=== PATIENT | male | born 1950 | race Caucasian/White ===

== ENCOUNTER 2017-02-17 07:35 | Emergency (ER) | payer MEDICARE ==
--- NOTE | 2017-02-17 09:05 | RAD ---
4 VIEWS LEFT ELBOW: Date: 02/17/17 COMPARISON: None. HISTORY: Left elbow pain after injury. FINDINGS: Four views of the left elbow show no evidence of acute fracture or dislocation. No degenerative saha ges are seen. No elbow effusion is seen. IMPRESSION: No significant left elbow abnormality. POS: [facility]
--- NOTE | 2017-02-17 09:14 | RAD ---
3 VIEWS LUMBAR SPINE: Date: 02/17/17 COMPARISON: 11/02/12. HISTORY: Fall, trauma, pain. FINDINGS: There is atherosclerotic calcification of the abdominal aorta. Stent graft material overlies the rig ht sacral ala. There is an anterior wedge compression fracture of the T12 vertebral body with approximately 40% los s of vertebral body height anteriorly, unchanged when compared to the 11/02/12 exam. There is a mild superior end plate fracture of L1. This L1 anterior wedge compression fracture/super ior end plate fracture demonstrates 25% loss of vertebral body height. This fracture is new when com pared to prior imaging, which includes a CT exam performed on 09/28/16. No evidence for fracture of L2, L3, L4, or L5. IMPRESSION: 1. New superior end plate/anterior wedge compression fracture of L1 vertebral body with approximate ly 25% loss of vertebral body height anteriorly. 2. Stable T12 anterior wedge compression fracture. POS: [facility]
== END 2017-02-17 10:41 | disposition home or self-care (01) ==
LOC: ERS 07:35
DX: S32.019A Unspecified fracture of first lumbar vertebra, initial encounter for closed fracture (principal); I12.9 Hypertensive chronic kidney disease with stage 1 through stage 4 chronic kidney disease, or unspecified chronic kidney disease; N18.2 Chronic kidney disease, stage 2 (mild); E78.5 Hyperlipidemia, unspecified; I25.10 Atherosclerotic heart disease of native coronary artery without angina pectoris; F17.210 Nicotine dependence, cigarettes, uncomplicated; Z79.899 Other long term (current) drug therapy; Z86.73 Personal history of transient ischemic attack (TIA), and cerebral infarction without residual deficits; W06.XXXA Fall from bed, initial encounter
CPT/HCPCS: 72100

== ENCOUNTER 2017-06-24 20:06 | Inpatient (IN) | payer MEDICARE ==
--- NOTE | 2017-06-24 21:19 | RAD ---
LEFT FEMUR TWO VIEWS 06/24/17 INDICATION: Fall with pain. FINDINGS: There is mild cortical irregularity of the lateral aspect of the subcapital aspect of the proximal le ft femur. There is osteoarthritis. IMPRESSION: Subtle fracture lucency suggested at the subcapital aspect of the proximal left femur. Consider dedic ated hip views for further evaluation. POS: [facility]
[2017-06-24 21:22] LABS: #Eosinphils 0.1 thou/uL (0.0-0.7); #Lymphocytes 1.3 thou/uL (1.20-3.40); #Monocytes 0.5 thou/uL (0.11-0.59); %Basophils 0.4 % (0.0-1.0); %Eosinophils 1.6 % (0.0-10.0); %Lymphocytes 18.5 % (21.0-51.0); %Monocytes 7.3 % (0.0-10.0); %Neutrophils 72.3 % (42.0-75.0); Hemoglobin 13.2 g/dL (14.0-18.0); Mean Corpuscular HGB CONC 32.9 g/dL (32.0-36.0); Mean Corpuscular Hemoglobin 29.9 pg (27.0-31.0); Mean Corpuscular Volume 90.9 fl (80.0-94.0); Mean Platelet Volume 7.1 fL (7.4-10.4); Platelet Count 166 thou/uL (130-400); RBC Distribution Width 12.4 % (11.5-14.5); White Blood Cell (WBC) Count 6.9 thou/uL (4.8-10.8)
--- NOTE | 2017-06-24 21:24 | RAD ---
FRONTAL VIEW CHEST 06/24/17 INDICATION: Fall with pain. FINDINGS: Interstitial prominence of each lung present. There is no obvious consolidation, discrete pneumothora x or significant effusion. Patient positioning does limit assessment. The cardiac silhouette is accentuated. There is osseous de generative change. IMPRESSION: Interstitial prominence of each lung. This could be on the basis of edema or interstitial lung diseas e. No lobar consolidation. POS: [facility]
[2017-06-24 21:28] LABS: INR-International Normal Ratio 1.1; PTT 38.1 SEC (22.9-36.1); Prothrombin Time 13.8 SEC (12.0-14.7)
--- NOTE | 2017-06-24 21:28 | RAD ---
PELVIC RADIOGRAPH 06/24/17 INDICATION: Fall with pain. FINDINGS: There is mild cortical irregularity of the lateral aspect of the subcapital region of the proximal le ft femur. There is scattered osseous degenerative change. Vascular stents seen at the right iliac reg ion and there is scattered metallic clips. IMPRESSION: Cortical irregularity of the lateral aspect of the subcapital region of the proximal left femur indic ating minimally displaced acute fracture. Recommend clinical correlation. POS: [facility]
[2017-06-24 21:47] LABS: ALT (SGPT) 8 U/L (8-55); AST (SGOT) 10 U/L (5-34); Alkaline Phosphatase 114 U/L (40-150); Anion Gap 12 mmol/L (10-20); BUN (Urea Nitrogen) 14 mg/dL (8.4-25.7); Bilirubin, Total 0.7 mg/dL (0.2-1.2); Calc. Creatinine Clearance 0 mL/min (70-130); Calcium 9.4 mg/dL (7.8-10.44); Carbon Dioxide 26 mmol/L (23-31); Chloride 107 mmol/L (98-107); Estimated GFR-MDRD 77; Globulin 3.3 g/dL (2.4-3.5); Glucose 121 mg/dL (80-115); Potassium 4.2 mmol/L (3.5-5.1); Protein, Total 7.3 g/dL (5.8-8.1); Sodium 141 mmol/L (136-145)
--- NOTE | 2017-06-24 22:44 | CT ---
CT HEAD 06/24/17 INDICATION: Fall with head injury. FINDINGS: reference is made to 11/20/16. Redemonstration of multifocal ischemia with deep white matter disease and multifocal encephalomalaci a. Stable density of the left occipital region. IMPRESSION: No significant interval change from 11/20/16 exam. POS: [facility]
--- NOTE | 2017-06-24 22:51 | CT ---
CERVICAL SPINE CT NONCONTRAST 06/24/17 INDICATION: Fall with neck injury and pain. FINDINGS: There is no evidence of craniocervical distraction. Multilevel moderate degenerative changes present. There is no acute fracture. There is mild retrolisthesis of C3 on C4 and C4 on C5. Trace spondylolis thesis is present at C7-T1. IMPRESSION: No acute fracture identified of cervical spine. There is moderate multilevel degenerative change. POS: [facility]
[2017-06-24] MEDS ORDERED: traMADol HCl 50 MG TAB PO PRN (23:09)
[2017-06-24] MEDS ORDERED: Dextrose 5% in Water 1,000 ML IV PRN (23:10)
[2017-06-24] MEDS ORDERED: Ondansetron HCl/PF 4 MG/2 ML Vial IVP PRN (23:10)
[2017-06-24] MEDS ORDERED: Ondansetron ODT 4 MG TAB PO PRN (23:10)
[2017-06-24] MEDS ORDERED: Dextrose 50% Abboject 50 ML SYRINGE SLOW IVP PRN (23:10)
[2017-06-24 23:31] LABS: CKMB 0.9 ng/mL (0-6.6); Troponin I Less than 0.010 ng/mL (< 0.028)
[2017-06-24] MEDS ORDERED: Sodium Chloride 0.9% 1,000 ML IV SCH (23:45)
[2017-06-24] MEDS ORDERED: Acetaminophen 1,000 MG in Premix Bag 1 BAG IVPB SCH (23:59)
[2017-06-24] MEDS ORDERED: Ketorolac Tromethamine 30 MG/ML VIAL IVP SCH (23:59)
[2017-06-24] MEDS ORDERED: traMADol HCl 50 MG TAB PO SCH (23:59)
[2017-06-25] MEDS ORDERED: Dextrose 5% in Water 1,000 ML IV PRN (02:00)
[2017-06-25] MEDS ORDERED: Dextrose 50% Abboject 50 ML SYRINGE SLOW IVP PRN (02:00)
[2017-06-25] MEDS ORDERED: Ondansetron ODT 4 MG TAB PO PRN (02:03)
[2017-06-25] MEDS ORDERED: Ondansetron HCl/PF 4 MG/2 ML Vial IVP PRN ×3 (02:03→15:22)
[2017-06-25] MEDS ORDERED: traMADol HCl 50 MG TAB PO PRN (02:04)
[2017-06-25] MEDS: Sodium Chloride 0.9% 1,000 ML IV SCH ×2 (02:12→14:04)
[2017-06-25] MEDS: Acetaminophen 1,000 MG in Premix Bag 1 BAG IVPB SCH ×4 (02:12→22:19)
[2017-06-25] MEDS ORDERED: Ketorolac Tromethamine 30 MG/ML VIAL ONE (02:13)
--- NOTE | 2017-06-25 02:49 | HP ---
DATE OF SERVICE: 06/25/2017 ATTENDING PHYSICIAN: Fabrice Piper M.D. TRAUMA ACTIVATION: Not applicable. HISTORY OF PRESENT ILLNESS: This is a 67-year-old gentleman who presented to the [facility] from his [facility] after a fall earlier today. Per correction, patient's baseline orient ation is alert and oriented x2. The patient does recall falling in the shower, but does not remember the events surrounding his accident. He denies loss of consciousness or head injury. There are no external signs of head trauma. He was evaluated in the emergency room and found to have a left femur fracture. Orthopedic Surgery was notified and Trauma Services was asked to admit. Upon my evaluati on, the patient had a chief complaint of left hip pain. The majority of the history was obtained fro m records review as patient has a history of vascular dementia. PAST MEDICAL HISTORY: Significant for peripheral vascular disease, multiple CVAs, coronary artery di sease, and hypertension as well as a GI bleed. HOME MEDICATIONS: Per correction documentation include amlodipine 5 mg p.o. b.i.d., Lipitor 10 mg p.o. b.i.d., Protonix 40 mg p.o. daily, B12 of 1000 mcg p.o. daily, Florastor 250 mg p.o. daily, foli c acid 1 mg p.o. daily, multivitamin daily, thiamine 100 mg p.o. daily, iron supplementation 325 p.o. daily, buspirone 5 mg t.i.d., Risperdal 0.25 mg p.o. at bedtime. 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 ALLERGIES: Patient denies. None documented in our system. SOCIAL HISTORY: Patient is a correction resident and states he ambulates independently. He does a dmit to previous tobacco use, but denies current tobacco, alcohol or illicit drug use. FAMILY HISTORY: Unable to obtain. Per record review, he does have 2 daughters, one of which is the power of campground hand. REVIEW OF SYSTEMS: Unobtainable secondary to patient's underlying dementia. PHYSICAL EXAMINATION: VITAL SIGNS: Blood pressure 119/74, pulse 93, respirations 20, O2 saturation 97% on 3 liters nasal c annula, temperature 99.1. HEENT: Normocephalic, atraumatic. Eyes: Left eye is 1 mm and reactive to light, right eye is 4 mm and sluggish, but reactive. The patient states this is normal for him and occurred status post catar act surgery. Extraocular movements are intact. NECK: Supple. Trachea is midline. CHEST: Atraumatic. No tenderness to palpation. LUNGS: Clear to auscultation bilaterally. CARDIOVASCULAR: Regular rate and rhythm, no obvious murmurs, rubs, or gallops. GASTROINTESTINAL: Abdomen is soft, nontender, nondistended. Bowel sounds are positive. MUSCULOSKELETAL: Bilateral upper extremities range of motion within normal limits for patient. Ther e are 2 small skin tears on the left side, 1 posterior to the left elbow and 1 at the left wrist. Ri ght lower extremity within normal limits. There is bruising of the left buttocks with limited range of motion of left lower extremity secondary to pain. He is neurovascularly intact distal to the side of his injury. NEUROLOGIC: Oriented to self and situation. LABORATORY FINDINGS: EKG reviewed by ER physician within normal limits. WBC 6.9, hemoglobin 13.2, hematocrit 40, platelet count 166. INR is 1.1, PT 13.8, PTT 38.1. Sodium 141, potassium 4.2, chloride 107, carbon dioxide 26, BUN 14, creatinine 0.97, glucose 121. Troponin less than 0.010. BNP 23. Urinalysis is pending. RADIOLOGIC FINDINGS: Chest x-ray read by Radiology as an interstitial prominence of each lung but wi thout acute cardiopulmonary process. X-ray of the pelvis was read as having irregularity of the subc apital region of the proximal left femur. X-ray of the left femur demonstrated a subcapital fracture per Radiology read. CT of the brain was negative for acute intracranial abnormality or bleed and st able compared with prior in 2017. CT of the C-spine is negative for acute fracture or dislocation, b ut did demonstrate chronic degenerative changes. ASSESSMENT: 1. Status post unwitnessed fall. 2. Left hip fracture. 3. Acute traumatic pain. 4. History of peripheral vascular disease. 5. History of coronary artery disease. 6. History of multiple cerebrovascular accidents. 7. Vascular dementia. 8. Arthritis. PLAN: 1. Admit to Trauma Services. 2. Orthopedic surgery has been notified and will evaluate the patient. The patient should be n.p.o. after midnight. Gentle IV fluid hydration. Perioperative pain management. Postoperative PT, OT. 3. DVT and gastritis prophylaxis as appropriate. Trauma service has been notified of admission.
[2017-06-25 05:07] VITALS: BMI 16.2
[2017-06-25] MEDS: Ketorolac Tromethamine 30 MG/ML VIAL IVP SCH ×4 (05:11→22:21)
[2017-06-25] MEDS: traMADol HCl 50 MG TAB PO SCH ×3 (05:42→17:29)
[2017-06-25 05:58] LABS: #Eosinphils 0.1 thou/uL (0.0-0.7); #Lymphocytes 1.1 thou/uL (1.20-3.40); #Monocytes 0.5 thou/uL (0.11-0.59); #Neutrophils 4.5 thou/uL (1.40-6.50); %Basophils 0.4 % (0.0-1.0); %Eosinophils 2.2 % (0.0-10.0); %Monocytes 8.4 % (0.0-10.0); Hemoglobin 11.7 g/dL (14.0-18.0); Mean Corpuscular HGB CONC 32.4 g/dL (32.0-36.0); Mean Corpuscular Hemoglobin 29.6 pg (27.0-31.0); Mean Corpuscular Volume 91.4 fl (80.0-94.0); Mean Platelet Volume 7.3 fL (7.4-10.4); Platelet Count 156 thou/uL (130-400); RBC Distribution Width 12.2 % (11.5-14.5); Red Blood Cell (RBC) Count 3.94 mill/uL (4.70-6.10); White Blood Cell (WBC) Count 6.3 thou/uL (4.8-10.8)
[2017-06-25] MEDS ORDERED: Ketorolac Tromethamine 30 MG/ML VIAL IVP SCH (06:00)
[2017-06-25] MEDS ORDERED: Fentanyl 100 MCG/2 ML VIAL ONE (07:43)
[2017-06-25] MEDS ORDERED: Prevnar 13-Val Conj/PF 0.5 ML SYRINGE IM ONE (08:15)
[2017-06-25] MEDS: Famotidine/PF 20 mg/2ml Vial SLOW IVP SCH ×2 (08:46→22:21)
[2017-06-25] MEDS ORDERED: Famotidine/PF 20 mg/2ml Vial SLOW IVP SCH (09:00)
--- NOTE | 2017-06-25 09:30 | RAD ---
TWO VIEWS OF THE LEFT HIP: INDICATION: History of femur fracture and left hip pain. IMPRESSION: There is a mildly displaced comminuted left femoral neck fracture. There is diffuse osteopenia. The subcapital femoral neck fracture does not appear appreciably changed from the comparison dated . POS: [facility]
--- NOTE | 2017-06-25 09:53 | CT ---
CT OF THE LEFT HIP WITHOUT CONTRAST: INDICATION: History of left-sided hip fracture. COMPARISON: Left femoral radiographs dated 06/24/07 and left hip radiographs dated 06/25/17. FINDINGS: There is a comminuted subcapital femoral neck fracture with fracture communication extending into the basicervical region of the femoral neck. The subcapital femoral neck component is posteriorly and l aterally angulated. More prominent vertically oriented fracture component extends from the subcapita l region into the inferior and anterior aspect of the basicervical neck region. Additional comminuti on is seen along the posterior and superior margin of the base of the femoral neck. There is diffuse osteopenia. There is moderate osteoarthrosis of the left hip joint. There is mild muscular strain involving the left iliopsoas musculature. There is moderate distention of the bladder. The rectum a nd perirectal soft tissues are unremarkable. There are scattered vascular calcifications. IMPRESSION: Comminuted, mildly angulated left subcapital femoral neck fracture with fracture comminution extendin g into the left femoral neck midcervical region as well as the basicervical region indicative of an u nstable femoral neck fracture. POS: [facility]
--- NOTE | 2017-06-25 09:59 | PDOC.GSPN ---
Surgery Progress Note: Subj - Subjective Narrative: Resting comfortably. No complaints Surgery Progress Note: Obj - Vital signs Vital signs: Vital Signs - Most Recent Temp Pulse Resp BP Pulse Ox 97.5 F L 68 16 95/61 94 L 06/25/17 08:15 06/25/17 08:15 06/25/17 08:15 06/25/17 08:15 06/25/17 08:15 - Physical Exam General: no distress Cardiovascular: regular rate and rhythm Respiratory: clear to auscultation Abdomen: soft, non tender Surgery Progress Note: Results - Labs Result Diagrams: 06/25/17 04:54 06/24/17 21:10 Lab results: Laboratory Results - last 24 hr 06/25/17 06/25/17 04:54 04:54 WBC 6.3 RBC 3.94 L Hgb 11.7 L Hct 36.0 L MCV 91.4 MCH 29.6 MCHC 32.4 RDW 12.2 Plt Count 156 MPV 7.3 L Neutrophils % 72.0 Lymphocytes % 17.0 L Monocytes % 8.4 Eosinophils % 2.2 Basophils % 0.4 Neutrophils # 4.5 Lymphocytes # 1.1 L Monocytes # 0.5 Eosinophils # 0.1 Basophils # 0.0 Phosphorus 3.6 Surgery Progress Note: A/P - Problem (1) Closed right hip fracture Current Visit: Yes Code(s): S72.001A - FRACTURE OF UNSP PART OF NECK OF RIGHT FEMUR, INIT Status: Acute Assessment and Plan: To OR once consent obtained. See H&P from Danna ANDERSON for details
--- NOTE | 2017-06-25 10:51 | HP ---
DATE OF PROCEDURE: 06/25/2017 CHIEF COMPLAINT: Left hip pain. HISTORY OF PRESENT ILLNESS: Mr. Rousseau is a 67-year-old male status post a fall at the senior living followed by Dr. Dumont in [place]. Date of the fall was 06/24/2017. The patient is currently compl aining of pain in his left hip. The patient has a history of vascular dementia. The patient has a Keenan brennan who is his power of bankruptcy attorney. The patient also has a brother. He was unable obtain history. The patient is complaining of left hip pain. Most of the history was obtained from senior living records and previous chart evaluation. PAST MEDICAL HISTORY: Anemia, hyperlipidemia, hypertension, vascular dementia, left spastic hemipleg ia, coronary artery disease, stroke, OR, gastroesophageal reflux, chronic kidney disease, peripheral vascular disease. PAST SURGICAL HISTORY: Right toe amputation 3-5 and a right anterior tib bi-fem/pop with stenting. MEDICATIONS: Thiamine, ferrous sulfate, Norvasc, buspirone, vitamin B12, Florastor, folic acid, mul tivitamin, pantoprazole, atorvastatin, risperidone. ALLERGIES: No known drug allergies. SOCIAL HISTORY: Positive smoking in the past per chart. Currently no tobacco, alcohol, or drug use. Lives in a senior living [facility]. Daughter is the power of bankruptcy attorney. He has got a florencia loya and apparently another daughter. REVIEW OF SYSTEMS: Unobtainable. PHYSICAL EXAMINATION: GENERAL: A male resting in bed in no acute distress, alert, and oriented to person, not to time or place. EXTREMITIES: Left lower extremity looks in good alignment. He has pain with internal and external r otation, no obvious bruising. The patient has a stable pelvis on AP and lateral exam. The patient h as weak knee extension and knee flexion. He is unable to flex or extend his toes. He does have subt le plantar and dorsiflexion. I did not see spastic paralysis. The patient has downgoing Babinski's. The patient has no beats of clonus. The patient has sluggish cap refill, no obvious ulcerations or skin wounds noted. LABORATORY: H&H 11 and 36. INR 1.1. Chemistry: Potassium 4.2, glucose 121, creatinine 0.97, his CK-MB was 0.91, his troponin is less than 0.010. X-RAYS: The patient's x-rays of his femur, pelvis and hip today showed a subtle subcortical step-off of the femoral neck without obvious displacement consistent with a subcapital femoral neck fracture. The patient's chest x-ray had some interstitial lung prominence. No overt consolidation. The uli ent also had a CT scan of his cervical spine and brain. A CT scan of the cervical spine shows no acu te fracture, multiple level degenerative changes. CT scan of the patient's brain shows no significan t interval change in the multifocal encephalomalacia. DIAGNOSES: 1. Left subcapital femoral neck fracture. 2. Anemia. 3. Vascular dementia. 4. Hyperlipidemia. 5. Hypertension. 6. Hemiplegia. 7. Gastroesophageal reflux disease. 8. Peripheral vascular disease. PLAN: The patient will remain n.p.o. Need to discuss care with the family. Per brothers report as well as the report from the senior living he is supposed to potentially be in a wheelchair, but is amb ulating independently. The patient is confused at bedside. I have contacted the patient's daughter and have been unsuccessful in making contact with her. I did discuss intervention. I would likely p alma either percutaneous screw fixation versus hemiarthroplasty based on the patient's functional stat us versus nonoperative management if the family so wishes. I will call and discuss with them further interventions. I will await care of the patient. I have been on the floor in the care of the michael nt for over 60 minutes.
[2017-06-25] MEDS ORDERED: Cepastat Lozenges 1 LOZ PO PRN (11:25)
[2017-06-25] MEDS ORDERED: Milk Of Magnesia 30 ML UDCUP PO PRN (11:25)
[2017-06-25] MEDS ORDERED: Fentanyl 100 MCG/2 ML VIAL SLOW IVP PRN (11:25)
[2017-06-25] MEDS ORDERED: Bisacodyl 10 MG SUPP PR PRN (11:25)
[2017-06-25] MEDS ORDERED: Fleet Enema 133 ML BOT PR PRN (11:25)
[2017-06-25] MEDS ORDERED: Acetaminophen 325 MG TAB PO PRN (11:25)
[2017-06-25] MEDS ORDERED: CEFAZOLIN/Water 2 GM/20 ML SYRINGE ONE (12:25)
[2017-06-25] MEDS: CEFAZOLIN/Water 2 GM/20 ML SYRINGE SLOW IVP SCH ×2 (12:29→22:20)
--- NOTE | 2017-06-25 13:06 | CON ---
DATE OF CONSULTATION: 06/25/2017 HISTORY OF PRESENT ILLNESS: Mr. Rousseau is a pleasant 67-year-old male with history of vascular mir ntia. The patient has a history of multiple strokes. The patient is an ambulator, living in a [facility] home currently. I discussed with the patient, he had a fall and has left femoral neck fracture. I discussed with the patient's daughter the care of her father. I discussed screws could be performe d versus hemiarthroplasty based on the CT scan evidence of the fracture line starting subcapital and lateral aspect of the femoral head transversing with small oblique spike coming out near the calcar. I feel like this is likely unstable pattern if he walks likely displace it. I do not felt like scre ws given the patient's history. I would be ideal completing the procedure. I felt like hemiarthropl asty would enable him to ambulate. If he desires, he continue to ambulate as well as decreased the r isk of potential future surgery or complications. I discussed with the family the risks and benefits of surgery to include pain, scar, bleeding, infection, failure of procedure, fracture above or below , loss of life or limb and they understand this. They understand we are doing this to enable him to get up and walk. The patient is a DNR per his request as well as his daughter's request. We will pl an on doing that later today. The patient received antibiotics preoperatively.
[2017-06-25] MEDS ORDERED: HYDROmorphone 0.5 MG/0.5 ML SYRINGE ONE (13:37)
[2017-06-25] MEDS ORDERED: Dexamethasone 20 MG/5 ML VIAL ONE (13:46)
[2017-06-25] MEDS ORDERED: ePHEDrine/0.9% NaCl/PF SYRINGE 50 mg/10 ml ONE (13:46)
[2017-06-25] MEDS ORDERED: PHENYLEPHRINE-NS 100 MCG/ML 10 ML SYRINGE ONE (13:46)
[2017-06-25] MEDS ORDERED: Esmolol 100 MG/10 ML VIAL ONE (13:46)
[2017-06-25] MEDS ORDERED: Lidocaine 1% PF 5 ML VIAL ONE (13:46)
[2017-06-25] MEDS ORDERED: Propofol 200 MG/20 ML VIAL ONE (13:46)
[2017-06-25] MEDS ORDERED: Ondansetron HCl/PF 4 MG/2 ML Vial ONE (13:46)
[2017-06-25] MEDS ORDERED: Glycopyrrolate 0.2 MG/ML 5 ML SYRINGE ONE (13:46)
[2017-06-25] MEDS ORDERED: Promethazine HCl 25 MG/ML VIAL IM PRN ×2 (13:54→15:22)
[2017-06-25] MEDS ORDERED: Promethazine HCl 25 MG/ML VIAL SLOW IVP PRN ×2 (13:54→15:22)
[2017-06-25] MEDS ORDERED: SODIUM CHLORIDE 0.9% IVPB SCH (14:00)
[2017-06-25] MEDS ORDERED: CEFAZOLIN IVPB SCH (14:00)
[2017-06-25] MEDS ORDERED: HYDROmorphone 2 MG/ML VIAL SLOW IVP PRN (15:22)
--- NOTE | 2017-06-25 15:58 | RAD ---
LEFT HIP TWO VIEWS 06/25/17 HISTORY: Left hip fracture. FINDINGS: total left hip prosthesis is in place without perihardware lucency. Osseous structures are deminerali zed. IMPRESSION: Left hip prosthesis is in good radiographic position. POS: [facility]
[2017-06-25] MEDS ORDERED: Ferrous Gluconate 324 MG TAB PO SCH (21:00)
[2017-06-25] MEDS: Senokot S 8.6-50 MG TAB PO SCH (22:20)
--- NOTE | 2017-06-26 00:30 | PRG ---
DATE OF SERVICE: 06/25/2017 SUBJECTIVE: No acute events. The patient is postop day #1 from [facility]. OBJECTIVE: Overall, vital signs are reviewed and stable. Physical exam is unchanged, otherwise note d in the daily progress note. ASSESSMENT AND PLAN: Continue care as noted in daily progress note. Continue to monitor. Discharge disposition is pending.
--- NOTE | 2017-06-26 00:44 | OP ---
PREOPERATIVE DIAGNOSES: Left femoral neck fracture with split calcar extension. POSTOPERATIVE DIAGNOSIS: Left femoral neck fracture with split calcar extension. PROCEDURE PERFORMED: Cemented left hemiarthroplasty with cableing of the proximal femur. STAFF: Devin Andrew M.D. UNIVERSITY EXTENSION SPECIALIST: Rudy Hernadez PA-C ANESTHESIA: [place]. The patient received a general endotracheal intubation. ESTIMATED BLOOD LOSS: 150 mL TOURNIQUET TIME: None. IMPLANTS: A size 2 cables and sleeve set, a small Artisan bone plug, a andie straight stem size 0, a 28 mm femoral head 0 offset, 52/28 universal bipolar head, Warrior components. ANTIBIOTICS: Two grams Ancef. COMPLICATIONS: None. HISTORY OF PRESENT ILLNESS: Mr. Rousseau is a 67-year-old male with multiple medical problems to include history of peripheral vascular disease, dementia secondary to multiple cerebrovascular accidents and ischemic disease. The patient is currently in a care home. He is an ambulator, but is a poor ambulator because of his right foot amputation as well as difficulty due to stroke. The patient fell and documented fall at the care home sustaining a left femoral neck fracture. I talked with the patient's daughter who is the power of ict teacher that I would likely did not feel fixation would be appropriate given the placement in the femoral neck, I desired to perform a hemiarthroplasty. I discussed the risks and benefits of surgery to include pain , scar, bleeding, infection, damage to vital structures, decreased range of motion or strength, need for further surgeries, loss of life or limb, split of the trochanter. The patient's family understood the risks and benefits and elected to proceed. DESCRIPTION OF PROCEDURE: Timeout was performed on the patient's left lower extremity as the operative site based on sight, consents, markings. After timeout, the patient placed in the lateral position with all bony prominences well padded and an axillary roll. The patient's left lower extremity was prepped and draped in sterile fashion. A lateral incision made down through skin. We came down through the IT band, which was split. We took down the medius and minimus to see the capsule and excise the capsule, came down onto the patient's femoral neck fracture which had a split into the calcar. We cut the bone at the neck with a clean cut and removed the bone and then removed the head. The patient had a split in his calcar that was on the posterior aspect that calcar was looseas we started to broach. Therefore, we placed a cable across the calcar to help with the fixation, I elected to cement the stem to help with more of a distal fit. We placed our cable crimped in place. We then broached, broached up to a size 1, placed a size 0, cemented into place. The hip was reduced. It was checked to see if it was stable. I washed it out and closed the gluteus minimus with #2 Vicryl, gluteus medius #2 Vicryl, #2 Vicryl for the right IT band, #2 Quill, 0 Quill, 2-0 Quill, and glue. The patient will be admitted back to the floor and be weightbearing as tolerated. The patient will be admitted back to Trauma. We will need a return to senior care followed in-house by Medicine. The patient has a DO NOT RESUSCITATE order in place which will be put back in place after the surgery is complete. EMILEE
[2017-06-26] MEDS: traMADol HCl 50 MG TAB PO SCH ×4 (01:00→17:16)
[2017-06-26] MEDS: Ketorolac Tromethamine 30 MG/ML VIAL IVP SCH ×4 (02:48→21:54)
[2017-06-26] MEDS: Acetaminophen 1,000 MG in Premix Bag 1 BAG IVPB SCH (02:48)
[2017-06-26] MEDS: Sodium Chloride 0.9% 1,000 ML IV SCH ×2 (04:43→10:06)
[2017-06-26 05:06] LABS: Hemoglobin 10.9 g/dL (14.0-18.0); Mean Corpuscular HGB CONC 32.2 g/dL (32.0-36.0); Mean Corpuscular Hemoglobin 29.1 pg (27.0-31.0); Mean Corpuscular Volume 90.5 fl (80.0-94.0); Mean Platelet Volume 7.1 fL (7.4-10.4); Platelet Count 160 thou/uL (130-400); RBC Distribution Width 11.9 % (11.5-14.5); Red Blood Cell (RBC) Count 3.74 mill/uL (4.70-6.10); White Blood Cell (WBC) Count 7.2 thou/uL (4.8-10.8)
[2017-06-26 07:48] LABS: #Lymphocytes 0.6 thou/uL (1.20-3.40); #Monocytes 0.5 thou/uL (0.11-0.59); #Neutrophils 5.9 thou/uL (1.40-6.50); %Basophils 0.4 % (0.0-1.0); %Eosinophils 0.1 % (0.0-10.0); %Lymphocytes 9.1 % (21.0-51.0); %Monocytes 7.3 % (0.0-10.0); %Neutrophils 83.1 % (42.0-75.0); Hemoglobin 11.1 g/dL (14.0-18.0); Mean Corpuscular HGB CONC 32.9 g/dL (32.0-36.0); Mean Corpuscular Hemoglobin 29.7 pg (27.0-31.0); Mean Corpuscular Volume 90.3 fl (80.0-94.0); Platelet Count 179 thou/uL (130-400); Red Blood Cell (RBC) Count 3.74 mill/uL (4.70-6.10); White Blood Cell (WBC) Count 7.1 thou/uL (4.8-10.8)
[2017-06-26 08:09] LABS: Anion Gap 11 mmol/L (10-20); BUN (Urea Nitrogen) 15 mg/dL (8.4-25.7); Calc. Creatinine Clearance 65 mL/min (70-130); Calcium 8.8 mg/dL (7.8-10.44); Carbon Dioxide 24 mmol/L (23-31); Chloride 106 mmol/L (98-107); Estimated GFR-MDRD Greater than 90; Glucose 147 mg/dL (80-115); Magnesium 1.9 mg/dL (1.6-2.6); Phosphorus 3.9 mg/dL (2.3-4.7); Potassium 4.2 mmol/L (3.5-5.1); Sodium 137 mmol/L (136-145)
[2017-06-26] MEDS: Famotidine/PF 20 mg/2ml Vial SLOW IVP SCH ×2 (08:40→21:54)
[2017-06-26] MEDS: Ferrous Sulfate 325 MG TAB PO SCH ×2 (08:42→22:11)
[2017-06-26] MEDS: Senokot S 8.6-50 MG TAB PO SCH ×3 (08:42→22:11)
[2017-06-26] MEDS: Saccharomyces boulardii 250 MG CAP PO SCH ×2 (08:42→12:26)
[2017-06-26] MEDS: Multivitamin W/ Minerals 1 TAB PO SCH ×2 (08:43→12:26)
[2017-06-26] MEDS: Polyethylene Glycol 3350 17 GM Packet PO SCH (08:43)
[2017-06-26] MEDS: Folic Acid 1 MG TAB PO SCH ×2 (08:43→12:26)
[2017-06-26] MEDS: Cyanocobalamin (Vitamin B-12) 1,000 MCG TAB PO SCH ×2 (08:43→12:26)
[2017-06-26] MEDS: busPIRone HCl 5 MG TAB PO SCH ×3 (08:43→21:53)
[2017-06-26] MEDS ORDERED: Multivitamin W/ Minerals 1 TAB PO SCH (09:00)
[2017-06-26] MEDS: Amlodipine 5 MG TAB PO SCH ×2 (12:25→22:10)
--- NOTE | 2017-06-26 13:29 | PRG ---
DATE OF SERVICE: 06/26/2017 SUBJECTIVE: The patient is hospital day #2, postop day #1 status post ground level fall in which he sustained a left femoral neck fracture. Yesterday, he underwent a cemented left hemiarthroplasty wit h cabling of proximal femur. The patient reportedly tolerated this procedure well. This morning, du ring my exam, he is actually working with physical therapy. He was following basic commands and answ ering simple questions. Denied any pain and has reported to tolerate his diet this morning. OBJECTIVE: VITAL SIGNS: Temperature 98.2, heart rate 81, blood pressure 107/78, respirations 16, oxygen saturat ion is 96% on room air. GENERAL: The patient is awake and will respond to simple verbal commands, which appears to be his ba seline. LUNGS: Clear to auscultation bilaterally. HEART: Regular rate and rhythm. ABDOMEN: Soft, flat, nontender with active bowel sounds. EXTREMITIES: Neurovascularly intact x4. LABORATORY DATA: White blood cell count 7.1, hemoglobin 11.1, hematocrit 33.8, platelets 179. Sodiu m 137, potassium 4.2, chloride 106, CO2 24, BUN 15, creatinine 0.82, glucose 147, magnesium 1.9, phos phorus 3.9. There were no radiographs reviewed this morning. ASSESSMENT AND PLAN: 1. Status post fall. 2. Status post left hip arthroplasty after fracture. 3. Dementia. PLAN: Plan will be to continue supportive care, physical and occupational therapy, and the patient w ill most likely be discharged back to his facility tomorrow. This case was discussed with Dr. Iverson this morning.
[2017-06-26] MEDS ORDERED: risperiDONE 1 MG TAB PO SCH (21:00)
[2017-06-26] MEDS ORDERED: Atorvastatin Calcium 10 MG TAB PO SCH (21:00)
[2017-06-26] MEDS ORDERED: Acetaminophen 325 MG TAB PO SCH (23:00)
--- NOTE | 2017-06-26 23:08 | PRG ---
DATE OF SERVICE: 06/26/2017 SUBJECTIVE: Brayan Rousseau is a 67-year-old [facility] day #2, postop day #1, status post groun d level fall and repair of left femoral fracture. He is working with physical therapy. Pain is cont rolled with p.o. analgesics. Upon my evaluation, the patient vocalized some discomfort, but in his r ight lower extremity after which he stated his pain was 0/10. OBJECTIVE: VITAL SIGNS: Reviewed and stable. GENERAL: Patient is resting in bed in no acute distress. Breathing is nonlabored. He is on room ai r. PLAN: As documented in daily progress note. Continue care as ordered. Continue to monitor. Await eventual disposition/likely return to [facility]'s [facility] in the next day or two.
[2017-06-27] MEDS: Sodium Chloride 0.9% 1,000 ML IV SCH (00:28)
[2017-06-27] MEDS: traMADol HCl 50 MG TAB PO SCH ×3 (00:59→12:08)
[2017-06-27] MEDS: Acetaminophen 325 MG TAB PO SCH ×4 (04:01→15:23)
[2017-06-27 05:42] LABS: #Eosinphils 0.1 thou/uL (0.0-0.7); #Lymphocytes 1.3 thou/uL (1.20-3.40); #Monocytes 0.4 thou/uL (0.11-0.59); #Neutrophils 2.5 thou/uL (1.40-6.50); %Basophils 0.2 % (0.0-1.0); %Eosinophils 1.5 % (0.0-10.0); %Lymphocytes 30.8 % (21.0-51.0); %Monocytes 10.2 % (0.0-10.0); %Neutrophils 57.3 % (42.0-75.0); Hemoglobin 10.2 g/dL (14.0-18.0); Mean Corpuscular HGB CONC 32.5 g/dL (32.0-36.0); Mean Corpuscular Hemoglobin 29.8 pg (27.0-31.0); Mean Corpuscular Volume 91.6 fl (80.0-94.0); Mean Platelet Volume 7.4 fL (7.4-10.4); Platelet Count 166 thou/uL (130-400); Red Blood Cell (RBC) Count 3.44 mill/uL (4.70-6.10); White Blood Cell (WBC) Count 4.3 thou/uL (4.8-10.8)
[2017-06-27 06:22] LABS: Anion Gap 10 mmol/L (10-20); BUN (Urea Nitrogen) 21 mg/dL (8.4-25.7); Calc. Creatinine Clearance 61 mL/min (70-130); Calcium 8.4 mg/dL (7.8-10.44); Carbon Dioxide 25 mmol/L (23-31); Chloride 108 mmol/L (98-107); Estimated GFR-MDRD 87; Glucose 89 mg/dL (80-115); Magnesium 1.8 mg/dL (1.6-2.6); Phosphorus 2.4 mg/dL (2.3-4.7); Potassium 3.9 mmol/L (3.5-5.1); Sodium 139 mmol/L (136-145)
[2017-06-27] MEDS: Cyanocobalamin (Vitamin B-12) 1,000 MCG TAB PO SCH (09:58)
[2017-06-27] MEDS: Polyethylene Glycol 3350 17 GM Packet PO SCH (09:58)
[2017-06-27] MEDS: Folic Acid 1 MG TAB PO SCH (09:59)
[2017-06-27] MEDS: busPIRone HCl 5 MG TAB PO SCH ×2 (09:59→15:23)
[2017-06-27] MEDS: Ferrous Sulfate 325 MG TAB PO SCH (09:59)
[2017-06-27] MEDS: Multivitamin W/ Minerals 1 TAB PO SCH (09:59)
[2017-06-27] MEDS: Amlodipine 5 MG TAB PO SCH (09:59)
[2017-06-27] MEDS: Famotidine/PF 20 mg/2ml Vial SLOW IVP SCH (09:59)
[2017-06-27] MEDS: Senokot S 8.6-50 MG TAB PO SCH (10:00)
[2017-06-27] MEDS ORDERED: Enoxaparin Sodium 40 MG/0.4 ML SYRINGE SC SCH (10:00)
[2017-06-27] MEDS: Saccharomyces boulardii 250 MG CAP PO SCH (10:00)
[2017-06-27 13:16] VITALS: TEMP 97.7
[2017-06-27 14:29] VITALS: BP 114/73
[2017-06-27] MEDS ORDERED: Famotidine 20 MG TAB PO SCH (21:00)
[2017-06-28] MEDS ORDERED: Enoxaparin Sodium 40 MG/0.4 ML SYRINGE SC SCH (09:00)
--- NOTE | 2017-06-28 20:24 | DIS ---
DATE OF ADMISSION: 06/24/2017 DATE OF DISCHARGE: 06/27/2017 ADMITTING PHYSICIAN: Fabrice Piper M.D. DISCHARGING PHYSICIAN: Harsha Iverson DO CHIEF COMPLAINT: Left hip fracture. HISTORY OF PRESENT ILLNESS: The patient is a 67-year-old gentleman who presented to the [facility] after falling in the shower. He was evaluated and found to have a left hip fracture. Orthopedic S urgery was consulted and trauma service was asked to admit. Patient underwent a cemented left hemiar throplasty with cabling of the proximal femur on 06/25/2017. He tolerated the procedure well and was transferred to the surgical floor. He was discharged in stable condition back to his snf o n 06/27/2017. ADMISSION DIAGNOSES: 1. Status post fall. 2. Left hip fracture. 3. Acute traumatic pain. 4. History of peripheral vascular disease. 5. History of coronary artery disease. 6. History of multiple cerebrovascular accidents. DISCHARGE DIAGNOSES: 1. Status post fall. 2. Left hip fracture status post cemented left hemiarthroplasty with cabling in the proximal femur. 3. Acute traumatic pain. 4. History of peripheral vascular disease. 5. History of coronary artery disease. 6. History of multiple cerebrovascular accidents. PROCEDURES PERFORMED: Cemented left hemiarthroplasty with cabling in the proximal femur. DISCHARGE MEDICATIONS: 1. Atorvastatin calcium 10 mg p.o. at bedtime. 2. Vitamin B12 of 1000 mcg p.o. daily. 3. Folic acid 1 mg p.o. daily. 4. Multivitamin with minerals (Theragran-M) 1 tab p.o. daily. 5. Pantoprazole 40 mg p.o. daily. 6. Thiamine 100 mg p.o. daily. 7. Ferrous sulfate 325 mg p.o. twice daily. 8. Florastor 250 mg p.o. daily. 9. Amlodipine besylate 5 mg p.o. twice daily. 10. BuSpar 1 tab p.o. 3 times daily. 11. Risperidone 1 tab p.o. at bedtime. ACTIVITY ORDERS: Patient's weightbearing status is weightbearing as tolerated, left lower extremity. THERAPY INSTRUCTIONS: The patient will continue PT and OT. DIETARY INSTRUCTIONS: The patient should continue his heart healthy diet with supplements as needed. FOLLOWUP APPOINTMENTS: The patient is to follow up with Dr. Devin Andrew in 14 days. The patient is to follow up with Dr. Harsha Iverson in 14 days. Patient is to follow up with his PCP in 7 days. The patient was seen and examined along with Dr. Harsha Iverson who agrees with this plan for discharg e.
--- NOTE | 2017-07-02 17:05 | EKG ---
Test Reason : Blood Pressure : / mmHG Vent. Rate : 093 BPM Atrial Rate : 093 BPM P-R Int : 124 ms QRS Dur : 086 ms QT Int : 346 ms P-R-T Axes : 063 059 058 degrees QTc Int : 430 ms Normal sinus rhythm Normal ECG Confirmed by CHALINO BURGOS D.O. ([id number]), video news editor MIKHAIL VILLATORO ([id number]) on 07/02/2017 5:04:19 PM Referred By: Confirmed By:CHALINO BURGOS D.O.
== END 2017-06-27 17:43 | DRG 470 ==
LOC: ERS 20:06 → SURG A 23:10 → ERS 06-25 01:09
PROVIDERS: ADMIT Surgery; ATTEND Surgery
PROC: 0SRS0J9 Replacement of Left Hip Joint, Femoral Surface with Synthetic Substitute, Cemented, Open Approach (ICD-10-PCS; principal; 2017-06-25)
DX: S72.012A Unspecified intracapsular fracture of left femur, initial encounter for closed fracture (principal); F01.50 Vascular dementia, unspecified severity, without behavioral disturbance, psychotic disturbance, mood disturbance, and anxiety; G81.14 Spastic hemiplegia affecting left nondominant side; D64.9 Anemia, unspecified; E78.5 Hyperlipidemia, unspecified; S30.0XXA Contusion of lower back and pelvis, initial encounter; S51.012A Laceration without foreign body of left elbow, initial encounter; I25.10 Atherosclerotic heart disease of native coronary artery without angina pectoris; Z86.73 Personal history of transient ischemic attack (TIA), and cerebral infarction without residual deficits; I25.2 Old myocardial infarction; Z89.421 Acquired absence of other right toe(s); Z87.891 Personal history of nicotine dependence; K21.9 Gastro-esophageal reflux disease without esophagitis; I73.9 Peripheral vascular disease, unspecified; M19.90 Unspecified osteoarthritis, unspecified site; S61.512A Laceration without foreign body of left wrist, initial encounter; Z66 Do not resuscitate; I12.9 Hypertensive chronic kidney disease with stage 1 through stage 4 chronic kidney disease, or unspecified chronic kidney disease; N18.2 Chronic kidney disease, stage 2 (mild)
CPT/HCPCS: 36415; 70450; 71045; 72125; 72170; 80048; 80053; 82553; 83735; 83880; 84100; 84484; 85025; 85027; 85610; 85730; 86850; 86900; 86901; 90471; 90670; 93005; 99406; C1713; G0009; G0390; G8978-GP-CK; G8979-GP-CK; G8987-GO-CL; G8988-GO-CJ; G8996-GN-CL; G8997-GN-CL; G8998-GN-CL; J0131; J0690; J1100; J1170; J1642; J1650; J1885; J2001; J2270; J2405; J2704; J3010; J7050; S0028

== ENCOUNTER 2017-07-12 16:50 | Emergency (ER) | payer MEDICARE | END 2017-07-12 19:31 | disposition home or self-care (01) | LOC: ERS 16:50 | DX: R53.83 Other fatigue (principal); K21.9 Gastro-esophageal reflux disease without esophagitis; I12.9 Hypertensive chronic kidney disease with stage 1 through stage 4 chronic kidney disease, or unspecified chronic kidney disease; N18.2 Chronic kidney disease, stage 2 (mild); E78.5 Hyperlipidemia, unspecified; I25.10 Atherosclerotic heart disease of native coronary artery without angina pectoris; F17.210 Nicotine dependence, cigarettes, uncomplicated; Z86.73 Personal history of transient ischemic attack (TIA), and cerebral infarction without residual deficits; Z79.899 Other long term (current) drug therapy | CPT/HCPCS: 99284 ==

== ENCOUNTER 2017-07-23 14:58 | Emergency (ER) | payer MEDICARE ==
[2017-07-23 16:12] LABS: #Eosinphils 0.1 thou/uL (0.0-0.7); #Lymphocytes 1.2 thou/uL (1.20-3.40); #Monocytes 0.5 thou/uL (0.11-0.59); #Neutrophils 7.4 thou/uL (1.40-6.50); %Basophils 0.1 % (0.0-1.0); %Eosinophils 0.8 % (0.0-10.0); %Lymphocytes 13.2 % (21.0-51.0); %Monocytes 5.9 % (0.0-10.0); Hemoglobin 12.1 g/dL (14.0-18.0); Mean Corpuscular HGB CONC 32.7 g/dL (32.0-36.0); Mean Corpuscular Hemoglobin 29.5 pg (27.0-31.0); Mean Corpuscular Volume 90.1 fl (80.0-94.0); Mean Platelet Volume 6.4 fL (7.4-10.4); Platelet Count 309 thou/uL (130-400); RBC Distribution Width 12.8 % (11.5-14.5); Red Blood Cell (RBC) Count 4.11 mill/uL (4.70-6.10); White Blood Cell (WBC) Count 9.2 thou/uL (4.8-10.8)
[2017-07-23 16:34] LABS: ALT (SGPT) Less than 7 U/L (8-55); AST (SGOT) 9 U/L (5-34); Albumin 3.9 g/dL (3.4-4.8); Alkaline Phosphatase 123 U/L (40-150); Anion Gap 15 mmol/L (10-20); BUN (Urea Nitrogen) 17 mg/dL (8.4-25.7); Bilirubin, Total 0.2 mg/dL (0.2-1.2); CK (CPK) 25 U/L (30-200); Calc. Creatinine Clearance 0 mL/min (70-130); Calcium 9.3 mg/dL (7.8-10.44); Carbon Dioxide 25 mmol/L (23-31); Chloride 103 mmol/L (98-107); Estimated GFR-MDRD 68; Globulin 3.5 g/dL (2.4-3.5); Glucose 114 mg/dL (80-115); Potassium 4.6 mmol/L (3.5-5.1); Protein, Total 7.4 g/dL (5.8-8.1); Sodium 138 mmol/L (136-145)
--- NOTE | 2017-07-23 17:37 | RAD ---
LEFT HIP TWO VIEWS: 07/23/17 COMPARISON: 06/25/17. HISTORY: 67-year-old male with history of unwitnessed fall in the care home. COMPARISON: 06/25/17. FINDINGS: Total left hip replacement changes without dislocation or periprosthetic fracture. Bone demineralizat ion. IMPRESSION: Left total hip replacement without dislocation or periprosthetic fracture. POS: [facility]
[2017-07-23 17:47] LABS: Bilirubin Negative (Negative); Blood, Urine Trace (Negative); Clarity CLOUDY (Clear); Glucose, Urine (Dipstick) Negative (Negative); Leukocyte Large (Negative); Nitrite Positive (Negative); Protein, Urine (Dipstick) Negative (Neg-Trace); Specific Gravity, Urine 1.015 (1.002-1.036); pH, Urine 6.5 (5.0-9.0)
[2017-07-23 17:49] LABS: Bacteria/HPF 4+ HPF (None Seen); Hyaline Casts/LPF 0-3 HYALINE CAST LPF (0-3 Hyaline); Pathc Cast-AUWi Flag 0.13 (0-2.49); RBC/HPF 0-3 HPF (0-3); Squamous Epithelial None Seen HPF (0-3)
--- NOTE | 2017-07-23 18:43 | RAD ---
PORTABLE UPRIGHT FRONTAL CHEST RADIOGRAPH 07/23/17 COMPARISON: 06/24/17 HISTORY: Fall, pain. FINDINGS: There are diffuse increased linear interstitial densities, stable. Heart and mediastinal contours are unchanged. There is no pneumothorax, pleural fluid, focal consolidation, or alveolar edema. IMPRESSION: No significant interval change. POS: [facility]
--- NOTE | 2017-07-23 19:33 | CT ---
CT HEAD WITHOUT CONTRAST 07/23/17 COMPARISON: 06/24/17 HISTORY: Fall, trauma, pain. TECHNIQUE: Serial axial CT imaging at 5 mm intervals from vertex through skull base without contrast. FINDINGS: There is mucosal thickening involving the right maxillary sinus, incompletely imaged. There is athero sclerotic calcification of the cavernous carotid arteries. No displaced calvarial fracture is noted. There is significant diffuse cerebral volume loss. There is an areas of subcortical calcification in the left occipital lobe measuring 7 mm, unchanged. There is evidence of prior infarction with associa patricia encephalomalacia within the temporal lobe on the right and the frontal lobe on the left. There is extensive periventricular, deep, and subcortical white matter hypodensity, evidence of small vessel disease. No midline shift, mass effect, or ventricular enlargement. IMPRESSION: Stable head CT as described above, demonstrating evidence of cerebral volume loss, small vessel disea se, and multiple prior infarctions. No intracranial hemorrhage or displaced calvarial fracture noted. POS: [facility]
--- NOTE | 2017-07-23 21:04 | CT ---
CT CERVICAL SPINE 07/23/17 COMPARISON: 06/24/17 HISTORY: Fall, trauma, pain. TECHNIQUE: Serial axial CT imaging at 2.5 mm intervals from skull base to the lung apices without contrast with coronal and sagittal reformatted imaging. FINDINGS: the imaged lung apices demonstrate bilateral subpleural emphysematous change, right greater than left . There is prominent atherosclerotic calcification involving distal CCA and proximal ICA bilaterally, n ot well assessed on this exam. The C1 ring is intact. Occipital condyles, dens, C1-2 articulation, craniocervical junction, atlantoaxial interspace, and ce rvicothoracic junction demonstrate no acute findings. Stable mild retrolisthesis noted at C3-4 and C4 -5 and stable mild anterolisthesis noted at C7-T1. There is prominent multilevel disc space narrowing and degenerative end plate change, most prominent at C3-4 and C6-7. There is multilevel bilateral st able facet and uncovertebral osteophyte formation. No prevertebral soft tissue swelling. Sagittal ref ormatted imaging demonstrates stable vertebral body height with no evidence for compression fracture deformity. IMPRESSION: Numerous chronic findings as described above. No acute fracture or evidence of dislocation seen. POS: [facility]
== END 2017-07-23 19:24 ==
LOC: ERS 14:58
DX: Z04.3 Encounter for examination and observation following other accident (principal); N39.0 Urinary tract infection, site not specified; D64.9 Anemia, unspecified; Z86.73 Personal history of transient ischemic attack (TIA), and cerebral infarction without residual deficits; E78.5 Hyperlipidemia, unspecified; Z87.891 Personal history of nicotine dependence; Z79.899 Other long term (current) drug therapy; W19.XXXA Unspecified fall, initial encounter
CPT/HCPCS: 36415; 51701; 70450; 71045; 72125; 80053; 81003; 81015; 82550; 85025; 87077; 87086; 87186; 93005

== ENCOUNTER 2017-07-29 12:51 | Emergency (ER) | payer MEDICARE ==
--- NOTE | 2017-07-29 13:29 | RAD ---
RADIOGRAPH LEFT HIP 2 VIEWS: Date: 07/29/17 HISTORY: 67-year-old male status post acute traumatic injury to the left hip. FINDINGS: There is metallic prosthetic acetabular cup and a metallic femoral head and neck, with stem reaching the junction between the proximal and middle thirds of the femoral diaphysis. There is a single cercl age wire around the intertrochanteric region. There is no dislocation. No evidence of acute fracture. IMPRESSION: 1. Status post left hip replacement arthroplasty. 2. No acute injury identified. POS: [facility]
--- NOTE | 2017-07-29 13:46 | RAD ---
RADIOGRAPH PELVIS 1 VIEW: Date: 07/29/17 HISTORY: 67-year-old male status post acute pelvic injury from fall. FINDINGS: Left hip replacement arthroplasty hardware is present. There is a right common iliac artery stent. Th ere is a cluster of surgical clips in the right groin. Mild to moderate degenerative changes of the r ight hip. No acute fracture identified. No dislocation. Pelvic ring appears to be grossly intact. IMPRESSION: 1. No acute fracture identified. 2. Status post left hip replacement arthroplasty. 3. Mild to moderate osteoarthrosis of right hip. 4. Right common iliac artery vascular stent. POS: [facility]
== END 2017-07-29 14:43 | disposition home or self-care (01) ==
LOC: ERS 12:51
DX: S70.02XA Contusion of left hip, initial encounter (principal); I10 Essential (primary) hypertension; Z86.73 Personal history of transient ischemic attack (TIA), and cerebral infarction without residual deficits; E78.5 Hyperlipidemia, unspecified; I25.10 Atherosclerotic heart disease of native coronary artery without angina pectoris; Z87.891 Personal history of nicotine dependence; Z79.899 Other long term (current) drug therapy; W19.XXXA Unspecified fall, initial encounter
CPT/HCPCS: 72170

== ENCOUNTER 2017-09-03 15:48 | Inpatient (IN) | payer MEDICARE ==
--- NOTE | 2017-09-03 17:41 | RAD ---
RIGHT HIP TWO VIEWS: 09/03/17 HISTORY: Fall. Right hip pain. FINDINGS/IMPRESSION: There is a fracture involving the neck of the right femur with associated foreshortening. POS: [facility]
--- NOTE | 2017-09-03 17:52 | CT ---
CT BRAIN WITHOUT CONTRAST: 09/03/17 HISTORY: Injury, headache. FINDINGS: Comparison is made with exam of 07/23/17. Changes of cortical atrophy, chronic small vessel ischemic disease, old infarctions in the right temp oral and left frontal regions and 7 mm focal subcortical calcifications in the left occipital lobe ar e unchanged. The ventricular size is stable and the basilar cisterns patent. No evidence of acute infarct, hemor rhage, midline shift, or abnormal extra-axial fluid collections is noted. The bony calvarium is intac t. There is a mucous retention cyst versus polyp in the left maxillary sinus. The mastoid air cells a re well aerated. IMPRESSION: Chronic changes. No CT evidence of acute intracranial process. POS: [facility]
[2017-09-03 18:32] LABS: #Basophils 0.1 thou/uL (0.0-0.2); #Lymphocytes 0.8 thou/uL (1.20-3.40); #Monocytes 0.4 thou/uL (0.11-0.59); #Neutrophils 10.1 thou/uL (1.40-6.50); %Basophils 0.6 % (0.0-1.0); %Eosinophils 0.1 % (0.0-10.0); %Lymphocytes 6.9 % (21.0-51.0); %Monocytes 3.4 % (0.0-10.0); Hemoglobin 13.2 g/dL (14.0-18.0); Mean Corpuscular HGB CONC 33.7 g/dL (32.0-36.0); Mean Corpuscular Hemoglobin 28.9 pg (27.0-31.0); Mean Corpuscular Volume 85.8 fl (80.0-94.0); Mean Platelet Volume 6.4 fL (7.4-10.4); Platelet Count 265 thou/uL (130-400); RBC Distribution Width 13.2 % (11.5-14.5); Red Blood Cell (RBC) Count 4.57 mill/uL (4.70-6.10); White Blood Cell (WBC) Count 11.4 thou/uL (4.8-10.8)
[2017-09-03 18:37] LABS: Bilirubin Negative (Negative); Blood, Urine Small (Negative); Clarity CLOUDY (Clear); Glucose, Urine (Dipstick) Negative (Negative); Leukocyte Negative (Negative); Nitrite Negative (Negative); Protein, Urine (Dipstick) Negative (Neg-Trace); Specific Gravity, Urine 1.015 (1.002-1.036); Urobilinogen 0.2 mg/dL (0.2-1.0)
[2017-09-03 18:39] LABS: INR-International Normal Ratio 1.1; PTT 30.1 SEC (22.9-36.1); Prothrombin Time 13.9 SEC (12.0-14.7)
[2017-09-03 18:40] LABS: Bacteria/HPF None Seen HPF (None Seen); Hyaline Casts/LPF 0-3 HYALINE CAST LPF (0-3 Hyaline); Pathc Cast-AUWi Flag 0.29 (0-2.49); RBC/HPF 21-50 HPF (0-3); WBC/HPF 0-3 HPF (0-3)
[2017-09-03 18:43] LABS: Renal Epithelial None Seen HPF (0-3); Transitional Epithelial NONE SEEN HPF (0-3)
[2017-09-03 18:57] LABS: ALT (SGPT) 10 U/L (8-55); AST (SGOT) 14 U/L (5-34); Albumin 4.3 g/dL (3.4-4.8); Alkaline Phosphatase 129 U/L (40-150); Anion Gap 15 mmol/L (10-20); BUN (Urea Nitrogen) 15 mg/dL (8.4-25.7); Bilirubin, Total 0.3 mg/dL (0.2-1.2); Calc. Creatinine Clearance 0 mL/min (70-130); Calcium 9.4 mg/dL (7.8-10.44); Carbon Dioxide 22 mmol/L (23-31); Chloride 103 mmol/L (98-107); Estimated GFR-MDRD Greater than 90; Globulin 3.2 g/dL (2.4-3.5); Glucose 177 mg/dL (80-115); Magnesium 1.9 mg/dL (1.6-2.6); Potassium 3.9 mmol/L (3.5-5.1); Protein, Total 7.5 g/dL (5.8-8.1); Sodium 136 mmol/L (136-145)
[2017-09-03] MEDS ORDERED: traMADol HCl 50 MG TAB PO PRN (19:01)
[2017-09-03] MEDS ORDERED: Dextrose 5% in Water 1,000 ML IV PRN (19:01)
[2017-09-03] MEDS ORDERED: Dextrose 50% Abboject 50 ML SYRINGE SLOW IVP PRN (19:01)
[2017-09-03] MEDS ORDERED: Ondansetron HCl/PF 4 MG/2 ML Vial IVP PRN (19:07)
[2017-09-03] MEDS ORDERED: hydrALAZINE 20 MG/ML VIAL SLOW IVP PRN (19:07)
[2017-09-03] MEDS ORDERED: Ondansetron ODT 4 MG TAB PO PRN (19:07)
[2017-09-03] MEDS ORDERED: Morphine 4 MG/ML VIAL SLOW IVP PRN (19:07)
[2017-09-03 19:24] LABS: CKMB 0.9 ng/mL (0-6.6); Troponin I Less than 0.010 ng/mL (< 0.028)
[2017-09-03] MEDS: traMADol HCl 50 MG TAB PO SCH (23:08)
[2017-09-03] MEDS: Senokot S 8.6-50 MG TAB PO SCH (23:08)
[2017-09-03] MEDS: Acetaminophen 1,000 MG in Premix Bag 1 BAG IVPB SCH (23:09)
[2017-09-03] MEDS: Sodium Chloride 0.9% 1,000 ML IV SCH (23:09)
[2017-09-03] MEDS: Ketorolac Tromethamine 30 MG/ML VIAL IVP SCH (23:09)
[2017-09-04 00:12] VITALS: BMI 19.1
--- NOTE | 2017-09-04 01:50 | HP ---
CHIEF COMPLAINT: Right hip pain. HISTORY OF PRESENT ILLNESS: Mr. Rousseau is a 67-year-old man known to our service, who was in a long-term. He was followed by Wanda Richards. He states he fell into his chair. He is currently in a wheelchair, could not have anybody at bedside, anybody to talk to. His daughter is Kayla Rousseau who is the power of consumer attorney. He has a brother and history in the past taken from them. The patient is at bedside, alert and oriented to himself, location. He did not know the year. He is resting comfortably. He has pain with motion of his right hip. PAST MEDICAL HISTORY: Anemia, hyperlipidemia, hypertension, vascular dementia, left spastic hemiplegia, Marfan syndrome, cardiac procedure, stroke, HI, gastroesophageal reflux disease, chronic kidney disease, peripheral vascular disease, right amputation third through fifth, right fem-pop bypass, previous left-cemented hemiarthroplasty by me performed in 06/2017. MEDICATIONS: Please see administration list. ALLERGIES: None. SOCIAL HISTORY: History of smoking in the chart previously. No current alcohol. Lives in a long-term. Patient's daughter is the power of consumer attorney. PHYSICAL EXAMINATION: Patient is resting in bed. His pupils unchanged. Patient's right lower extremity shows pain with external and internal rotation. No obvious bruising, pain, or flexion, extension. He can move to extend his toes. He does have cap refill, but sluggish. No obvious wounds. Patient's radiographs from a pelvis taken on 07/29/2017 from a previous fall showed no fracture. Repeat films today show a right femoral neck fracture, completely displaced. IMPRESSION: 1. Right femoral neck fracture. 2. Vascular dementia. 3. Anemia, vascular dementia, hyperlipidemia, hypertension, and hemiplegia. Vascular disease. Need to discuss again with the patient and the family with care. Currently, the patient is now wheelchair bound. I am not sure how active the patient is. If he is wheelchair bound with all of these current medical problems, I am not sure that nena arthroscopy is warranted, if the patient is ambulating now, I will discuss with family. His further care, I discussed with them risks and benefits again. The plan will be n.p.o. in case patient needs to undergo right- cemented hemiarthroplasty vs uncemented hemiarthroplasty We will proceed tomorrow where cleared by family. [facility]
[2017-09-04 05:36] LABS: #Lymphocytes 1.5 thou/uL (1.20-3.40); #Monocytes 0.8 thou/uL (0.11-0.59); #Neutrophils 4.3 thou/uL (1.40-6.50); %Basophils 0.6 % (0.0-1.0); %Eosinophils 0.7 % (0.0-10.0); %Lymphocytes 22.6 % (21.0-51.0); %Monocytes 11.3 % (0.0-10.0); %Neutrophils 64.8 % (42.0-75.0); Hemoglobin 12.5 g/dL (14.0-18.0); Mean Corpuscular HGB CONC 33.8 g/dL (32.0-36.0); Mean Corpuscular Hemoglobin 29.2 pg (27.0-31.0); Mean Corpuscular Volume 86.4 fl (80.0-94.0); Mean Platelet Volume 6.8 fL (7.4-10.4); Platelet Count 241 thou/uL (130-400); RBC Distribution Width 13.4 % (11.5-14.5); Red Blood Cell (RBC) Count 4.29 mill/uL (4.70-6.10); White Blood Cell (WBC) Count 6.6 thou/uL (4.8-10.8)
[2017-09-04 05:55] LABS: Anion Gap 10 mmol/L (10-20); BUN (Urea Nitrogen) 15 mg/dL (8.4-25.7); Calc. Creatinine Clearance 65 mL/min (70-130); Calcium 9.2 mg/dL (7.8-10.44); Carbon Dioxide 26 mmol/L (23-31); Chloride 106 mmol/L (98-107); Estimated GFR-MDRD Greater than 90; Glucose 112 mg/dL (80-115); Magnesium 2.2 mg/dL (1.6-2.6); Phosphorus 4.3 mg/dL (2.3-4.7); Potassium 3.9 mmol/L (3.5-5.1); Sodium 138 mmol/L (136-145)
[2017-09-04] MEDS: Acetaminophen 1,000 MG in Premix Bag 1 BAG IVPB SCH ×3 (06:01→17:53)
[2017-09-04] MEDS: traMADol HCl 50 MG TAB PO SCH ×3 (06:01→18:03)
[2017-09-04] MEDS: Ketorolac Tromethamine 30 MG/ML VIAL IVP SCH ×4 (06:02→23:59)
[2017-09-04] MEDS ORDERED: Magnesium 2 GM/NS 0.9% 100 ML 2 GM in Premix Bag 1 BAG IVPB SCH (09:00)
[2017-09-04] MEDS: Sodium Chloride 0.9% 1,000 ML IV SCH ×2 (10:31→20:48)
[2017-09-04] MEDS: Senokot S 8.6-50 MG TAB PO SCH ×2 (10:32→20:49)
--- NOTE | 2017-09-04 11:01 | HP ---
DATE OF ADMISSION: 09/03/2017 ATTENDING PHYSICIAN: Dr. Aryan Zhang. TRAUMA ACTIVATION: Not applicable. HISTORY OF PRESENT ILLNESS: Brayan Rousseau is a 67-year-old male, who is a resident of a prison with a history of dementia. Per patient, he was attempting to sit in a chair, slipped and fell, landing on his right side. He presented with a chief complaint of right hip pain and head pain. He was evaluated in the emergency room and found to have an isolated right hip fracture. The patient has a history of vascular dementia and is alert and oriented x2 at baseline. Therefore, the majority of the history is obtained via records review. Orthopedic Surgery has been notified and Trauma Service was asked to admit. Upon my evaluation, the patient has a chief complaint of right hip pain. There is no family at bedside. ALLERGIES: None. HOME MEDICATIONS: Include vitamin B12 of 1000 mcg once daily, Florastor once daily, folic acid 1 mg once daily, multivitamin 1 tab daily, Protonix 40 mg p.o. daily, thiamine p.o. daily, ferrous sulfate p.o. daily, Norvasc 5 mg p.o. b.i.d., BuSpar 5 mg 1 tab p.o. t.i.d., atorvastatin 10 mg p.o. daily, risperidone 0.5 mg p.o. at bedtime. PAST MEDICAL HISTORY: Significant for peripheral vascular disease, multiple CVAs, coronary artery disease, hypertension, and history of GI bleed as well as frequent falls, most recently in 07/2017, although the patient was admitted in 06/2017 for a left hip fracture, chronic kidney disease stage 2 and generalized muscle weakness. 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 SOCIAL HISTORY: The patient is a prison resident. Per prison staff , he is currently wheelchair bound, but he was ambulating independently prior to 06/2017. He is a former smoker. Denies current alcohol, tobacco or illicit drug use. FAMILY HISTORY: Unable to obtain. REVIEW OF SYSTEMS: Unable to obtain. PHYSICAL EXAMINATION: VITAL SIGNS: Blood pressure 149/82, pulse 75, respirations 20, O2 sat 97% on room air, temperature 97.8. GENERAL: Well-developed elderly appearing male, in no acute distress, resting in bed. HEAD: Normocephalic, atraumatic. EYES: Pupils are unequal at baseline. Extraocular movements are intact. NECK: Supple. Trachea is midline. Pulmonary: Atraumatic. No tenderness to palpation. lungs clear to auscultation bilaterally. CV: RRR no MRG GI: ab soft ntnd bowel sounds + MSK: BLE contracted slightly. RLE ROM limited 2/2 pain Neuro: A&O x 2 (person, situation) Laboratory findings: wbc 11.4, hgb 13.2, hct 39.2, pltc 265 sodium 136, K 3.9, Cl 103, Co2 22, BUN 15, Cr 0.84, glucose 177, ast/alt wnl, trop <0.010 EKG: no evidence of stemi Radiographic findings: Xray R hip - R fem neck fx CT Brain _ negative for intracranial bleed/abnormality Assessment 1.) s/p fall 2/) R hip fx 3. acute traumatic pain 4. hx frequent falls 5. hx vascular dementia 6. weakness/debility- previously ambulatory, now wheelchair bound Plan Admit to trauma services. discussed with orthopedic surgery who will evaluate the pt and discuss plans for intervention with POA. NPO after midnight. perioperative pain management. post op pt/ot. am labs. gentle IVF hydration. dvt /gastritis prophylaxis as appropriate. trauma attending notified of admission MTDD
[2017-09-04] MEDS ORDERED: Fentanyl 100 MCG/2 ML VIAL ONE ×2 (11:52→14:05)
[2017-09-04] MEDS ORDERED: Midazolam HCl 2 mg/2 ml Vial ONE (11:52)
[2017-09-04] MEDS ORDERED: CEFAZOLIN/Water 2 GM/20 ML SYRINGE ONE (12:22)
[2017-09-04] MEDS ORDERED: CEFAZOLIN 2 GM in Sodium Chloride 0.9% 100 ML IVPB SCH (13:00)
[2017-09-04] MEDS ORDERED: CEFAZOLIN/Water 2 GM/20 ML SYRINGE SLOW IVP SCH (13:00)
[2017-09-04] MEDS ORDERED: Ondansetron HCl/PF 4 MG/2 ML Vial IVP PRN (15:21)
[2017-09-04] MEDS ORDERED: Promethazine HCl 25 MG/ML VIAL IM PRN (15:21)
[2017-09-04] MEDS ORDERED: Promethazine HCl 25 MG/ML VIAL SLOW IVP PRN (15:21)
[2017-09-04] MEDS ORDERED: PHENYLEPHRINE-NS 100 MCG/ML 10 ML SYRINGE ONE (16:48)
[2017-09-04] MEDS ORDERED: PROPOFOL 200 MG/20 ML VIAL ONE (16:48)
--- NOTE | 2017-09-04 18:36 | RAD ---
RIGHT HIP TWO VIEWS: FINDINGS/IMPRESSION: There are recent post op changes of right femoral head prosthesis placement since exam of previous da y. Soft tissue air is present. A left sided femoral prosthesis is also in good position. POS: [facility]
[2017-09-04] MEDS ORDERED: CEFAZOLIN 1 GM in Sodium Chloride 0.9% 100 ML IVPB SCH (22:00)
[2017-09-04] MEDS: CEFAZOLIN 1 GM, Syringe 2.5 ML in Sterile Water 7.5 ML SLOW IVP SCH (22:04)
[2017-09-05] MEDS: Acetaminophen 1,000 MG in Premix Bag 1 BAG IVPB SCH
[2017-09-05 05:09] LABS: #Eosinphils 0.3 thou/uL (0.0-0.7); #Lymphocytes 1.5 thou/uL (1.20-3.40); #Monocytes 0.5 thou/uL (0.11-0.59); #Neutrophils 4.3 thou/uL (1.40-6.50); %Basophils 0.5 % (0.0-1.0); %Eosinophils 4.4 % (0.0-10.0); %Lymphocytes 22.1 % (21.0-51.0); %Monocytes 7.8 % (0.0-10.0); %Neutrophils 65.2 % (42.0-75.0); Hemoglobin 11.2 g/dL (14.0-18.0); Mean Corpuscular HGB CONC 32.5 g/dL (32.0-36.0); Mean Corpuscular Hemoglobin 28.5 pg (27.0-31.0); Mean Corpuscular Volume 87.8 fl (80.0-94.0); Mean Platelet Volume 6.9 fL (7.4-10.4); Platelet Count 226 thou/uL (130-400); RBC Distribution Width 13.3 % (11.5-14.5); Red Blood Cell (RBC) Count 3.92 mill/uL (4.70-6.10); White Blood Cell (WBC) Count 6.6 thou/uL (4.8-10.8)
[2017-09-05] MEDS: Ketorolac Tromethamine 30 MG/ML VIAL IVP SCH ×3 (05:24→17:47)
[2017-09-05] MEDS: traMADol HCl 50 MG TAB PO SCH ×4 (05:25→17:48)
[2017-09-05] MEDS: CEFAZOLIN 1 GM, Syringe 2.5 ML in Sterile Water 7.5 ML SLOW IVP SCH (05:26)
[2017-09-05 06:09] LABS: Anion Gap 11 mmol/L (10-20); BUN (Urea Nitrogen) 12 mg/dL (8.4-25.7); Calc. Creatinine Clearance 66 mL/min (70-130); Calcium 8.6 mg/dL (7.8-10.44); Carbon Dioxide 25 mmol/L (23-31); Chloride 105 mmol/L (98-107); Estimated GFR-MDRD Greater than 90; Glucose 91 mg/dL (80-115); Magnesium 2.3 mg/dL (1.6-2.6); Phosphorus 3.2 mg/dL (2.3-4.7); Potassium 3.9 mmol/L (3.5-5.1); Sodium 137 mmol/L (136-145)
[2017-09-05] MEDS: Senokot S 8.6-50 MG TAB PO SCH ×2 (08:36→20:13)
[2017-09-05] MEDS: Sodium Chloride 0.9% 1,000 ML IV SCH (09:50)
--- NOTE | 2017-09-05 14:40 | PRG ---
DATE OF SERVICE: 09/05/2017 SUBJECTIVE: The patient is hospital day #02, postop day #1, status post ground level fall in which s ustained a right proximal femur fracture. The patient has undergone open reduction internal fixation of same, tolerated this procedure well. This morning, he is tolerating p.o., and his pain is contro lled and will be working with physical and occupational therapy today. PHYSICAL EXAMINATION: VITAL SIGNS: Temperature is 97.4, heart rate 76, blood pressure 110/64, respirations 18, oxygen satu ration 93% on room air. GENERAL: The patient is awake, alert, and conversant and appears to be at his baseline. HEENT: Unremarkable. LUNGS: Clear to auscultation bilaterally with moderate inspiratory and expiratory effort. HEART: Regular rate and rhythm. ABDOMEN: Soft, flat, nontender with positive active bowel sounds. EXTREMITIES: Reveal neurovascularly intact. Capillary refill is less than 3 seconds. Pulses are 2+ in all extremities. Postop dressing is clean, dry, and intact. LABORATORY DATA: White blood cell count is 6.6, hemoglobin 11.2, hematocrit 34.4, platelets 226. So dium 137, potassium 3.9, chloride 105, CO2 25, BUN 12, creatinine 0.78, magnesium 2.3, phosphorus 3.2 . RADIOGRAPHIC FINDINGS: There are no radiographs to review this morning. ASSESSMENT: 1. Status post ground level fall. 2. Status post open reduction internal fixation of right proximal femur fracture. PLAN: Will be to continue supportive care, physical and occupational therapy and discharged back to his intermediate once he has worked with physical and occupational therapy. The evaluation and exami nation were done with Dr. Iverson during rounds this morning.
--- NOTE | 2017-09-05 23:00 | HP ---
CHIEF COMPLAINT: Fall. HISTORY OF PRESENT ILLNESS: Patient is a 67-year-old patient who has dementia lives in a nursing george e. They were attempting to transfer from wheelchair to a chair and he fell and landed on his right h ip, complains primarily of right hip pain. He has had a previous left hip fracture similar epi sode several months ago. PAST MEDICAL HISTORY: Significant for multiple CVAs, coronary artery disease, hypertension, peripher al vascular disease, chronic renal insufficiency, and deconditioning. PAST SURGICAL HISTORY: Include left hip surgery in June of 2017. He has had a right fem-pop wit h reverse saphenous. He has had amputations of his multiple toes. He has had cataract surgery. SOCIAL HISTORY: Lives in a retirement. He is wheelchair bound. He is a former smoker. No alcoho l or tobacco currently. FAMILY HISTORY: Unremarkable. PHYSICAL EXAMINATION: HEENT: He has asymmetric pupils, the left is pinpoint, the right is about 3 mm. Otherwise unremarka ble. NEUROLOGIC: He will answer simple questions with yes or no. He is a very thin male. NECK: Supple. Nontender. CHEST: Unremarkable. ABDOMEN: Soft, nondistended. He has tenderness in the right groin area. LABORATORY AND DIAGNOSTIC DATA: White count 6.6, H and H 12 and 37, platelet count 241,000. Electro lytes are fine. Coags are fine. Urinalysis 21 to 50 rbc's. He had hip x-ray showing a fracture of the neck of the right femur with foreshortening. Brain CT, chronic changes. No acute process. ASSESSMENT: Isolated right hip fracture. PLAN: Per Orthopedics.
[2017-09-06] MEDS: Ketorolac Tromethamine 30 MG/ML VIAL IVP SCH ×3 (00:20→11:10)
[2017-09-06] MEDS: traMADol HCl 50 MG TAB PO SCH ×3 (00:21→11:10)
--- NOTE | 2017-09-06 03:22 | PRG ---
DATE OF SERVICE: 09/04/2017 HISTORY OF PRESENT ILLNESS: Mr. Rousseau is a 67-year-old patient lives at detention, has history of multiple falls, 7 on last 2 weeks. Patient presents here with complaining of right hip pain. The patient with a history of vascular dementia. The patient is predominantly wheelchair bound, but does transfers, complaining of right hip pain. The patient is active and likes to walk. He has a DNR which could be rescinded for the surgery. PHYSICAL EXAMINATION: VITAL SIGNS: The patient is otherwise afebrile, resting comfortably in bed. GENERAL: Alert and oriented to person and place. EXTREMITIES: Right lower extremity is shortened and externally rotated. Pain with internal and external rotation. He has had gross sensation intact distally. LABORATORY DATA: H and H 12 and 36 INR 1.1. IMPRESSION: Right femoral neck fracture. The patient has history of multiple medical problems. PLAN: I discussed with the patient's care with his daughter, Kayla, who we discussed options of nonoperative conservative management. States that her father's wishes to be to remain active and have his hip replaced. I discussed risks and benefits of the surgery to include pain, scar, bleeding, infection, damage to vital structures, decreased range of motion or strength, failure of procedure, fracture above or below the stem, loss of life or limb. They understand the risks and benefits and elected to proceed. We will proceed with a right hip hemiarthroplasty. The patient received preop antibiotics. He will be admitted back to trauma and will be discharged later on this week. The patient's daughter's name is Kayla, phone number is [phone] with any questions or concerns. [facility] CENTERJaclyn
--- NOTE | 2017-09-06 05:08 | PRG ---
DATE OF SERVICE: 09/04/2017 SUBJECTIVE: This is a 67-year-old gentleman, hospital day 2, status post fall with right hip fracture. The patient has been seen and evaluated by Orthopedic Surgery. Plans for intervention are pending, discussion with family. Upon my evaluation, the patient vocalized no complaint. OBJECTIVE: VITAL SIGNS: Temperature 97.7, pulse 68, respirations 16, O2 sat 95% on room air, blood pressure 124/73. GENERAL: A well developed, elderly male, in no acute distress. Resting in bed. PULMONARY: Normal work of breathing. Symmetric rise. CARDIOVASCULAR: Regular rate and rhythm. GASTROINTESTINAL: Abdomen is soft, nontender, nondistended. MUSCULOSKELETAL: The patient appears somewhat contracted, but moves all extremities x4. Range of motion of right lower extremity was limited secondary to pain. NEUROLOGIC: Alert and oriented x2, which is baseline. ASSESSMENT: 1. Status post mechanical fall. 2. Right hip fracture. 3. Acute traumatic pain. 4. History of dementia present at baseline. 5. History of multiple cerebrovascular accidents. 6. Frequent falls. 7. Weakness and debility. Currently wheelchair bound. PLAN: Continue care as ordered. Orthopedic surgery is to discuss plans for intervention with family. Continue pain regimen as ordered. Patient discussed with Trauma attending. EMILEE
--- NOTE | 2017-09-06 08:21 | OP ---
DATE OF PROCEDURE: 09/04/2017 PREOPERATIVE DIAGNOSIS: Right femoral neck fracture, subacute. POSTOPERATIVE DIAGNOSIS: Right femoral neck fracture, subacute. PROCEDURES PERFORMED: Right hip hemiarthroplasty. STAFF: Devin Andrew M.D. ENGINEERING GROUP LEADER: Jaylon Hernadez PA-C ANESTHESIA: [place]. Patient received general endotracheal intubation. ESTIMATED BLOOD LOSS: 100 mL. TOURNIQUET TIME: None. IMPLANTS: Clint 49-mm bipolar universal head 28 mm x 4 mm minus femoral head and a size 4 Accolate TMZF by 125-mm hip stem. ANTIBIOTICS: Ancef 2 g. COMPLICATIONS: None. HISTORY OF PRESENT ILLNESS: Mr. Rousseau is a [id number] with vascular dementia. The patient is a half-way resident. Patient has a history of multiple falls. He had been seen previously with left hip pain, had a left hip hemiarthroplasty in June. I discussed with patient's family the risks and benefits of the right hip hemiarthroplasty include pain, scar, bleeding, infection in vital structures, decreased range of motion or strength, continued pain, failure of procedure, surgery infection, loss of life or limb. The patient's family understood the risks and benefits and would like to proceed. Patient is a DNR. Patient understood the risks and benefits and would like to proceed. DESCRIPTION OF PROCEDURE: A timeout was performed designating the patient's right lower extremity as the operative site based on sight, consents, markings. After completion of timeout, patient was placed on lateral decubitus position where bony prominences were well padded and an axillary roll. Patient lateral incision down to skin through IT band, gluteus medius, and minimus were taken off the capsule split and removed. We cut the femoral neck, removed the femoral head. I began broaching and broached up to 3.5, which was firm, but very difficult. Get the patient back to length, we should go up and down and finally end up on a 4. We had to count [place] Plane about a fingerbreadth above the greater and a lesser trochanter. We used a bipolar for these reductions. We placed a final implant and reduced the patient in place, closed the gluteus medius, minimus with #2 Vicryl, closed our IT band with #2 Vicryl and #2 Quill. We closed 0 Quill, 2-0 Quill, and glue. The patient was admitted back to Trauma and received 24 hours antibiotics to be weightbearing as tolerated. Require DVT prophylaxis. MTDD
[2017-09-06] MEDS ORDERED: Aspirin 325 MG TAB PO SCH (09:00)
[2017-09-06] MEDS: Senokot S 8.6-50 MG TAB PO SCH (09:28)
[2017-09-06 12:38] VITALS: BP 102/67; TEMP 98.7
== END 2017-09-06 13:40 | disposition home or self-care (01) | DRG 470 ==
LOC: ERS 15:48 → SURG B 19:01
PROVIDERS: ADMIT Surgery; ATTEND Surgery
PROC: 0SRR0JZ Replacement of Right Hip Joint, Femoral Surface with Synthetic Substitute, Open Approach (ICD-10-PCS; principal; 2017-09-04)
DX: S72.001A Fracture of unspecified part of neck of right femur, initial encounter for closed fracture (principal); F01.50 Vascular dementia, unspecified severity, without behavioral disturbance, psychotic disturbance, mood disturbance, and anxiety; G81.14 Spastic hemiplegia affecting left nondominant side; G89.11 Acute pain due to trauma; R53.1 Weakness; Z66 Do not resuscitate; I25.10 Atherosclerotic heart disease of native coronary artery without angina pectoris; I73.9 Peripheral vascular disease, unspecified; I12.9 Hypertensive chronic kidney disease with stage 1 through stage 4 chronic kidney disease, or unspecified chronic kidney disease; N18.2 Chronic kidney disease, stage 2 (mild); E78.5 Hyperlipidemia, unspecified; K21.9 Gastro-esophageal reflux disease without esophagitis; D64.9 Anemia, unspecified; I25.2 Old myocardial infarction; Z99.3 Dependence on wheelchair; R29.6 Repeated falls; Z86.73 Personal history of transient ischemic attack (TIA), and cerebral infarction without residual deficits; Z79.899 Other long term (current) drug therapy; Z89.421 Acquired absence of other right toe(s); Z96.642 Presence of left artificial hip joint; W07.XXXA Fall from chair, initial encounter; Y92.129 Unspecified place in nursing home as the place of occurrence of the external cause
CPT/HCPCS: 36415; 51701; 70450; 80048; 80053; 81003; 81015; 82553; 83735; 84100; 84484; 85025; 85610; 85730; 87086; 93005; A4216; G0390; G8978-GP-CM; G8979-GP-CK; J0131; J0690; J1885; J2250; J2704; J3010; J3475

== ENCOUNTER 2019-04-16 18:13 | Inpatient (IN) | payer MEDICARE, MEDICAID ==
[2019-04-16 18:51] LABS: #Basophils 0.1 thou/uL (0.0-0.2); #Lymphocytes 1.4 thou/uL (1.20-3.40); #Monocytes 0.4 thou/uL (0.11-0.59); #Neutrophils 8.4 thou/uL (1.40-6.50); %Basophils 0.7 % (0.0-1.0); %Eosinophils 0.1 % (0.0-10.0); %Lymphocytes 13.5 % (21.0-51.0); %Neutrophils 81.8 % (42.0-75.0); Hemoglobin 12.5 g/dL (14.0-18.0); Mean Corpuscular HGB CONC 31.4 g/dL (32.0-36.0); Mean Corpuscular Hemoglobin 28.5 pg (27.0-31.0); Mean Corpuscular Volume 90.6 fL (78.0-98.0); Mean Platelet Volume 7.9 fL (7.4-10.4); Platelet Count 268 thou/uL (130-400); RBC Distribution Width 13.2 % (11.5-14.5); White Blood Cell (WBC) Count 10.3 thou/uL (4.8-10.8)
[2019-04-16] MEDS ORDERED: Fentanyl 100 MCG/2 ML VIAL ONE (18:56)
[2019-04-16 19:14] LABS: ALT (SGPT) 8 U/L (8-55); AST (SGOT) 19 U/L (5-34); Albumin 2.7 g/dL (3.4-4.8); Alkaline Phosphatase 79 U/L (40-110); Anion Gap 16 mmol/L (10-20); BUN (Urea Nitrogen) 40 mg/dL (8.4-25.7); Bilirubin, Total 0.5 mg/dL (0.2-1.2); Calc. Creatinine Clearance 0 mL/min (70-130); Calcium 7.7 mg/dL (7.8-10.44); Carbon Dioxide 23 mmol/L (23-31); Chloride 126 mmol/L (98-107); Estimated GFR-MDRD 40; Globulin 3.3 g/dL (2.4-3.5); Glucose 127 mg/dL (83-110); Magnesium 2.6 mg/dL (1.6-2.6); Potassium 3.9 mmol/L (3.5-5.1); Sodium 161 mmol/L (136-145)
--- NOTE | 2019-04-16 19:22 | CT ---
Head CT without contrast 04/16/2019: COMPARISON: 03/14/2018 HISTORY: Altered mental status, sepsis, shortness of breath TECHNIQUE: Axial CT imaging at 5 mm intervals from vertex through skull base without contrast FINDINGS: The visualized paranasal sinuses and mastoid air cells are grossly unremarkable. There is a therosclerotic calcification of the cavernous carotid arteries. No displaced calvarial fracture. Prominent diffuse cerebral volume loss. Prominent small vessel disease. Evidence of prior infarction noted in the right temporal region and left frontal region. No intracranial hemorrhage, midline shift, or mass effect. IMPRESSION: Chronic findings as detailed above. No acute findings.
--- NOTE | 2019-04-16 19:24 | RAD ---
Portable frontal chest radiograph: 04/16/2019 COMPARISON: 09/27/2017 HISTORY: Altered mental status FINDINGS: Stable increased linear interstitial density. Heart and mediastinal contours are stable. No pneumothorax or pleural fluid. No focal consolidation or alveolar edema. Stable atherosclerotic calcification of the aortic arch. IMPRESSION: Stable appearance of the chest-no acute findings.
[2019-04-16 19:30] LABS: INR-International Normal Ratio 1.4; Prothrombin Time 16.8 SEC (12.0-14.7)
[2019-04-16] MEDS ORDERED: cefTRIAXone\\ROCEPHIN 2 GM VIAL ONE (20:05)
[2019-04-16 20:10] LABS: CKMB 1.5 ng/mL (0-6.6)
[2019-04-16] MEDS ORDERED: Norepinephrine 4 MG/4 ML VIAL ONE (20:11)
[2019-04-16] MEDS ORDERED: methylPREDNISolone Sod Succ/PF 125 MG/2 ML VIAL ONE (20:11)
--- NOTE | 2019-04-16 20:11 | RAD ---
Portable frontal chest radiograph: 04/16/2019 COMPARISON: 04/16/2019 HISTORY: Evaluate chest following central line placement FINDINGS: New right-sided vascular catheter present, distal tip overlying the cavoatrial junction. Mi ld new reticulonodular density in the left base may signify infiltrate or aspiration. No lobar consolidation or alveolar edema. No pneumothorax or pleural fluid. IMPRESSION: Right-sided vascular catheter. Mild increased density in the left lung base.
[2019-04-16] MEDS ORDERED: Norepinephrine 8 MG in Dextrose 5% in Water 242 ML IVPB PRN (20:16)
[2019-04-16 21:58] LABS: Troponin I 0.058 ng/mL (< 0.028)
[2019-04-16] MEDS ORDERED: Ondansetron PF 4 MG/2 ML Vial IVP PRN (22:23)
[2019-04-16] MEDS ORDERED: Ondansetron ODT 4 MG TAB SL PRN (22:23)
[2019-04-16] MEDS ORDERED: Dextrose 5% in Water 1,000 ML IV SCH (22:45)
[2019-04-17] MEDS ORDERED: Piperacillin/Tazobactam 2.25 GM VIAL ONE ×3 (00:28→10:48)
[2019-04-17] MEDS: Piperacillin/Tazobactam 2.25 GM in Sodium Chloride 0.9% 100 ML IVPB SCH ×2 (00:38→10:55)
[2019-04-17 01:05] LABS: Troponin I 0.061 ng/mL (< 0.028)
[2019-04-17 01:29] LABS: Anion Gap 17 mmol/L (10-20); BUN (Urea Nitrogen) 33 mg/dL (8.4-25.7); Calc. Creatinine Clearance 0 mL/min (70-130); Calcium 7.7 mg/dL (7.8-10.44); Carbon Dioxide 23 mmol/L (23-31); Chloride 124 mmol/L (98-107); Estimated GFR-MDRD 59; Glucose 229 mg/dL (83-110); Potassium 3.7 mmol/L (3.5-5.1); Sodium 160 mmol/L (136-145)
--- NOTE | 2019-04-17 02:34 | HP ---
PRIMARY CARE PHYSICIAN: Unknown at this time. CHIEF COMPLAINT: Was found slumped over in the group home. HISTORY OF PRESENT ILLNESS: The history of present illness is very limited as the patient is nonverbal. There are no family at the bedside. The history is obtained from discussion with the emergency room nurse as well as information from the ER records. Mr. Rousseau is a resident of the [facility] and apparently he was found slumped over in the chair and appeared to be short of breath. For this reason, he was brought in to the ER for evaluation. In the ER, he was found to be hypernatremic with an elevated creatinine. He also had a chest x-ray done, which was suspicious for an infiltrate in the left lung base. He was also found to be hypotensive. He is being admitted for further evaluation and treatment. The patient is currently lying on the stretcher and will stare at you, but will not interact. Otherwise, I am not able to get any additional history or information. From the ER records, it states that he does have chronic skin lesions. Apparently these had been evaluated in the past and also it was reported that he did have fever with a temperature of 101.1. Otherwise, no other history. REVIEW OF SYSTEMS: Unable to obtain review of systems due to the patient being nonverbal. PAST MEDICAL HISTORY: Significant for cerebrovascular accident with left-sided hemiparesis, hypertension, gastroesophageal reflux disease, chronic kidney disease stage 2, coronary artery disease, dementia, and history of frequent falls. 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 ALLERGIES: NO KNOWN DRUG ALLERGIES. SOCIAL HISTORY: Unobtainable. From the records, it did state that he is a DNR. FAMILY HISTORY: Also unobtainable due to the patient being nonverbal. MEDICATIONS: Taken from the group home records and include: 1. Loperamide. 2. Melatonin. 3. Lipitor 10 mg daily. 4. Hydroxyzine 25 mg daily. 5. Gabapentin 300 mg q.i.d. 6. Folic acid 1 mg daily. 7. Vitamin B12 5000 units weekly. 8. Aspirin 325 mg daily. 9. BuSpar 10 mg daily. 10. Thiamine 100 mg daily. 11. Tramadol 100 mg as needed. 12. Niacin 500 mg daily. 13. Multivitamin daily. 14. Amlodipine 5 mg daily. PHYSICAL EXAMINATION: GENERAL: He is awake. He will track you in the room. He is very cachectic in appearance and also appears chronically ill. His blood pressure was elevated by the time we saw him. His pressure was approximately 160/110, heart rate was ranging from 83 up to 130, respiratory rate of 16, and his temperature was 99.6. HEENT: His right pupil is dilated. The left pupil is pinpoint, both of which are minimally reactive. Throat, he has dry mucous membranes. He appears to be edentulous. NECK: There is no adenopathy, no bruits. LUNGS: Essentially clear except he did have some coarse breath sounds at the bases. There is no wheezing or rhonchi. CARDIOVASCULAR: He has a normal S1, S2. I did not appreciate an S3 or S4. Heart rate was regular, unable to appreciate any murmurs, clicks, or rubs. ABDOMEN: Scaphoid. Positive for bowel sounds. There is no rebound tenderness. EXTREMITIES: On his extremities, he has severe muscle wasting. No calf edema. No evidence of any joint effusions. NEUROLOGIC: He is moving all of his extremities and he is unable to follow any commands. SKIN AND INTEGUMENT: The skin is very dry in flaking and he has plaque-like lesions in various stages, some are erythematous, some actually look like dark eschar and he had a couple of actual bullous lesions on the abdomen. He also has mycotic toenails. LABORATORY DATA: The white blood cell count is 10.3, hemoglobin 12.5, hematocrit is 39.9, and platelet count is 268. INR is 1.4. His sodium is 161, potassium 3.9, chloride is 126, CO2 is 23, BUN of 40, creatinine 1.7, glucose is 127, and troponin was 0.062. IMAGING: On his chest x-ray again by my reading, heart size was normal. Lungs look slightly bit hyperexpanded. Costophrenic angles are sharp and there was an increase in haziness in the left lower lung base, which could represent an infiltrate. ASSESSMENT: This is a 69-year-old gentleman, who was seen found at the group home with decreased responsiveness. He was then found to be hypernatremic, initially hypotensive. There is also concern for possible sepsis. He is clearly malnourished. 1. For the hyponatremia, this is likely due to severe volume depletion and I suspect he may have some degree of dysphagia given his severe dehydration and then given his severe malnutrition. He has already received a fluid resuscitation with normal saline. At this point, we will start him on D5W at approximately 75 mL an hour and will recheck a BMP in about 4-6 hours to ensure that we are not correcting him too quickly. We will also get a speech therapy consult and leave him n.p.o. for tonight. 2. Possible pneumonia. Blood cultures should have been done in the ER. We will start him empirically on Levaquin given that he has been in a nursing facility. 3. Severe malnutrition. Again, I suspect he may have some degree of dysphagia given his previous stroke. We will again see how he fares with the speech therapy consult and should he require any alternative means of nutrition, then we will need to contact family with regard to what direction to go in. Overall, his prognosis appears to be poor with severe malnutrition, hypernatremia, and previous stroke. We will go ahead and get a palliative care consult as it appears from at least this standpoint in the ER that the patient could be a candidate for hospice. The patient will also be placed on deep venous thrombosis and gastrointestinal prophylaxis. Job ID: [id number]
[2019-04-17 03:50] LABS: Anion Gap 15 mmol/L (10-20); BUN (Urea Nitrogen) 31 mg/dL (8.4-25.7); Calc. Creatinine Clearance 45 mL/min (70-130); Calcium 7.6 mg/dL (7.8-10.44); Carbon Dioxide 23 mmol/L (23-31); Chloride 123 mmol/L (98-107); Estimated GFR-MDRD 63; Glucose 324 mg/dL (83-110); Potassium 3.5 mmol/L (3.5-5.1); Sodium 157 mmol/L (136-145)
[2019-04-17 04:27] VITALS: BP 149/98; TEMP 98.2
--- NOTE | 2019-04-17 06:44 | PDOC.HOSPP ---
- Subjective Encounter Date: 04/17/19 Encounter Time: 09:52 Subjective: The patient is relatively non-verbal but answers yes or no questions. Denies complaints. When asked if he eats, he doesn't respond. Doesn't remember falling. He knows he is in the hospital. He denies chest pain or shortness of breath. He denies cough - Objective Vital Signs & Weight: Vital Signs (12 hours) Temp Pulse Resp BP Pulse Ox 04/17/19 04:25 98.2 F 101 H 23 H 149/98 H 90 L 04/17/19 01:45 97.1 F L 109 H 22 H 116/69 96 04/16/19 22:48 98.6 F 97 20 177/127 H 96 04/16/19 22:36 96 Weight Weight 119 lb 4.321 oz Result Diagrams: 04/16/19 18:37 04/17/19 07:36 Hospitalist ROS - Review of Systems Constitutional: denies: fever, chills - Medication Medications: Active Medications Generic Name Dose Route Start Last Admin Trade Name Roseline PRN Reason Stop Dose Admin Dextrose/Water 1,000 mls @ 75 mls/hr 04/16/19 22:45 04/17/19 00:38 D5w IV 1,000 mls .[id number] PRIYANKA Administration Piperacillin Sod/Tazobactam 100 mls @ 200 mls/hr 04/16/19 23:59 04/17/19 00: 38 Sod 2.25 gm/ Sodium Chloride IVPB 100 mls 0800,1600,2359 PRIYANKA Administration - Exam General Appearance: NAD, awake alert General - other findings: sitting up in bed, right arm contracted. Minimal speech Eye: PERRL, anicteric sclera ENT: normocephalic atraumatic, no oropharyngeal lesions Neck: supple, symmetric, no JVD Heart: RRR, no murmur, no gallops, no rubs Respiratory: CTAB, no wheezes, no rales, no ronchi Gastrointestinal: soft, non-tender, non-distended Extremities: no cyanosis, no clubbing, no edema Extremities - other findings: severe malnutrition Skin - other findings: very dry skin with extensive bruising Neurological: no focal deficits, no new deficit Musculoskeletal: diffuse muscle atrophy Psychiatric: normal affect, A&O x 3 Hosp A/P - Plan CT head: no acute disease. Chest X ray: right sided central line. Mild increased density in the left lung base EKG: normal sinus rhythm with occasional PVC, T wave inversion in AVL This is 69 year old male sent in from [facility] for evaluation of fall S/p fall - unwitnessed. Patient is unaware of falling - CT head shows no acute disease. Chest X ray unremarkable - order PTOT - check ECHO Hypernatremia - likely from dehydration - sodium improved to 156, continue D5W, increase to 90 an hour . Repeat BMP at 7 pm Acute encephalopathy - likely from dehydration - likely metabolic from hypernatremia - NPO pending speech evaluation, then resume home medications - CT head negative - possibly has some dementia - palliative care consulted, per palliative care family was interested in hospice consult Elevated troponin - 0.062, EKG seems non-ischemic, T wave inversion in AVL - ECHO Pending Anemia - hemoglobin 12.5, at baseline - check B12, folate, TSH Severe malnutrition - needs speech evaluation Possible aspiration pneumonia - patient has been started on zosyn. Chest X ray shows mildly increased left density, but doesn't look impressive - blood cultures are negative preliminarily CVA in past - continue aspirin and statin CAD - continue atorvastatin and aspirin Hypertension - resume amlodipine when cleared by speech Dispo: palliative care and hospice consult, resolution of hypernatremia DVT prophylaxis: hold for frequent falls, SCD Code status: DNR
[2019-04-17 08:04] LABS: Chloride 121 mmol/L (98-107); Potassium 3.6 mmol/L (3.5-5.1); Sodium 156 mmol/L (136-145)
[2019-04-17 08:05] LABS: Calcium 7.8 mg/dL (7.8-10.44); Glucose 344 mg/dL (83-110)
[2019-04-17 08:07] LABS: Anion Gap 17 mmol/L (10-20); Carbon Dioxide 22 mmol/L (23-31)
[2019-04-17 08:09] LABS: BUN (Urea Nitrogen) 29 mg/dL (8.4-25.7); Calc. Creatinine Clearance 48 mL/min (70-130); Estimated GFR-MDRD 67
[2019-04-17] MEDS ORDERED: Famotidine/PF 20 mg/2ml Vial SLOW IVP SCH (09:00)
[2019-04-17] MEDS ORDERED: Heparin 5,000 UNITS/ML VIAL SC SCH (09:00)
[2019-04-17] MEDS ORDERED: Dextrose 5% in Water 1,000 ML IV SCH (09:52)
[2019-04-17] MEDS ORDERED: Famotidine/PF 20 mg/2ml Vial ONE (10:24)
--- NOTE | 2019-04-18 21:55 | DIS ---
DATE OF ADMISSION: 04/16/2019 DATE OF DISCHARGE: 04/17/2019 DISCHARGE DIAGNOSES: 1. Sepsis, possibly secondary to pneumonia. 2. Acute encephalopathy secondary to dehydration. 3. Hypernatremia. 4. Status post fall. 5. Elevated troponin. 6. Anemia. 7. Cerebrovascular accident. 8. Coronary artery disease. 9. Hypertension. HISTORY OF PRESENT ILLNESS: This is a 69-year-old male with a past medical history of CVA, hypertension, GERD, CKD, who had presented to the emergency room from [facility] after a possible unwitnessed fall. The patient is demented and were unable to obtain a history. In the ER, he was found to be hypernatremic with a sodium of 160. His creatinine was also noted to be elevated at 1.21. The patient had a chest x-ray done, which showed a possible infiltrate in the left lung base. The patient was also noted to be hypertensive with a blood pressure 177/ 127. The patient did have a fever of 101.1 as well. The patient was admitted for possible sepsis from pneumonia and severe malnutrition. HOSPITAL COURSE: Possible sepsis secondary to pneumonia: The patient had a temperature of 101 and a heart rate greater than 97. He did have a possible left lower lobe infiltrate. The patient was started empirically on IV Zosyn. Blood cultures were negative x2. After discussion with the family, the patient and family wanted to proceed with hospice; therefore, the patient was discharged back to hospice and discharged on Augmentin for total of 7 days. Consider a repeat chest x-ray as an outpatient. Hypernatremia/dehydration. The patient had presented with a sodium level of 160. He was initially placed on D5W. Repeat BMPs were done and sodium improved to 157. The patient, however, was unable to eat. Speech therapy was consulted; however, they had not seen the patient prior to discharge, because family decided they want to proceed with hospice. Therefore, the patient was discharged back to his facility and was going to be set up with hospice as an outpatient. Tachycardia: The patient was noted to have an EKG, which showed sinus rhythm with occasional PVCs. Per nursing, however, there was a question of an irregular rhythm. The patient's blood pressure however was only in the 90s, so rate control was unable to be given at the time. The patient on discharge, however, was sent with metoprolol 12.5 mg p.r.n., if patient's heart rate is greater than 110 and blood pressure greater than 100. Vitamin D deficiency: The patient had a vitamin D level that was noted to be low at 17. The patient was discharged on vitamin D supplementation. Elevated troponin: The patient had presented with a troponin of 0.062. He denied any chest pain. Echocardiogram was done, which showed an EF of 30% to 35%, mild MR, [id number] TR. No further workup was done since the patient was discharged with hospice. Anemia: The patient had a hemoglobin and hematocrit of 12.5/39.9. Consider repeat CBC as an outpatient and further workup of this is appropriate. Status post fall: The patient had unwitnessed fall. EKG showed normal sinus rhythm. Troponins were elevated. However, patient had no chest pain. Echo showed no wall motion abnormalities. CT head showed no acute disease. The patient was discharged prior to being seen by physical therapy. DISCHARGE PHYSICAL EXAMINATION: VITAL SIGNS: Temperature was 98.2, heart rate 101, respiratory rate 23, O2 saturation 98% on room air, blood pressure 149/98. GENERAL: The patient is alert. He was sitting up in bed with his right arm contracted and was mostly aphasic. CVS: Regular rate and rhythm with no murmurs, rubs, or gallops. RESPIRATORY: Clear to auscultation bilaterally. GI: Positive bowel sounds, soft, nontender, nondistended. EXTREMITIES: The patient was noted to have some muscle wasting and very dry skin with extensive bruising. There is no edema. NEUROLOGICAL: There were no focal neurologic deficits. Cranial nerves 2-12 intact. PERRLA. PERTINENT LABORATORY DATA: CBC on 04/16 : white blood cell count of 10.3, hemoglobin 12.5/39.9, platelets 268. BMP on 04/17 : sodium of 157, chloride 123, creatinine of 1.15. Troponin I : 0.062, 0.058, 0.061. PERTINENT IMAGIN. Chest x-ray shows mildly increased density in the left lung base. 2. CT head shows no acute disease. 3. EKG shows normal sinus rhythm with occasional PVC, T-wave inversion in aVL. DISCHARGE CONDITION: The patient will be discharged back to his nursing facility with setting up of home hospice. ACTIVITY: As tolerated. DIET: Regular diet. DISCHARGE MEDICATIONS: New medications: 1. Augmentin 875-125 one tablet p.o. b.i.d., 14 tablets. 2. Vitamin D 1000 units p.o. daily. 3. Metoprolol 12.5 mg p.o. b.i.d. p.r.n. for elevated heart rate. DISCHARGE INSTRUCTIONS: The patient will be discharged back to his nursing facility and will have hospice set up. He will continue Augmentin for 7 days and this should be crushed in applesauce. The patient to follow up with PCP in a week. CONSULTATIONS: Palliative Care. PROCEDURES: Patient had a central line placed, which was removed prior to discharge. Job ID: [id number] [facility]
--- NOTE | 2019-04-18 22:46 | PQF ---
BASIL GOODRICH UMA [id number] FAITH MACE [id number] CLINICAL DOCUMENTATION CLARIFICATION FORM: POST DISCHARGE Addendum to original discharge summary date: ____ Late entry note date: __ DATE:04/18/19 ATTN: Martha Denny Please exercise your independent, professional judgment in responding to the clarification form. Clinical indicators are provided on the bottom of this form for your review Please check appropriate box(s): [ X ] Aspiration Pneumonia [ ] Lobar Pneumonia [ ] Pneumonia secondary to (specify organism / underlying disease) [ ] Simple Pneumonia (community acquired - nosocomial) [ ] Pneumonia of unknown etiology [ ] Other diagnosis [ ] Unable to determine In addition, please specify: Present on Admission (POA): [ ] Yes [ ] No [ ] Unable to determine For continuity of documentation, please document condition throughout progress notes and discharge summary. Thank You. CLINICAL INDICATORS - SIGNS / SYMPTOMS / LABS H&P p1 04/16 Dr Angel the history of present illness is vert limited as the pt is nonverbal H&P p1 04/16 Dr Angel apparently he was found slumped over in the chair and appeared to be short of breath H&P p1 04/16 Dr Angel He also had a chest X-ray done, which was suspicious for an infiltrate in the left lung base H&P p2 04/16 Dr Angel I suspect he may have some degree of dysphagia given his severe dehydration and then give his malnutrition RISK FACTORS H&P p1 04/16 History of CVA H&P p1 04/16 GERD H&P p1 04/16 Dementia PN p3 04/17 Possible aspiration Pneumonia DS report p1 04/17 Sepsis, possibly secondary to Pneumonia TREATMENTS: JUL 18 IV Lavaquin JUL 18 D5W at 75ml/hr H&P 2 04/16 Speech therapy (This form is maintained as a part of the permanent medical record) 2014 [employer] All Rights Reserved [email or web address] [not provided] [email or web address]
== END 2019-04-17 18:00 | disposition hospice, inpatient (51) | DRG 177 ==
LOC: ERS 18:13 → ERHOLD 20:14
PROVIDERS: ADMIT Internal Medicine; ATTEND Internal Medicine
DX: J69.0 Pneumonitis due to inhalation of food and vomit (principal); A41.9 Sepsis, unspecified organism; E43 Unspecified severe protein-calorie malnutrition; E87.0 Hyperosmolality and hypernatremia; G93.49 Other encephalopathy; Z66 Do not resuscitate; Z51.5 Encounter for palliative care; K21.9 Gastro-esophageal reflux disease without esophagitis; I25.10 Atherosclerotic heart disease of native coronary artery without angina pectoris; F03.90 Unspecified dementia, unspecified severity, without behavioral disturbance, psychotic disturbance, mood disturbance, and anxiety; N18.2 Chronic kidney disease, stage 2 (mild); I12.9 Hypertensive chronic kidney disease with stage 1 through stage 4 chronic kidney disease, or unspecified chronic kidney disease; R29.6 Repeated falls; E86.0 Dehydration; D63.1 Anemia in chronic kidney disease; I48.91 Unspecified atrial fibrillation; I49.3 Ventricular premature depolarization; E55.9 Vitamin D deficiency, unspecified; I08.1 Rheumatic disorders of both mitral and tricuspid valves; Z86.73 Personal history of transient ischemic attack (TIA), and cerebral infarction without residual deficits; Z79.84 Long term (current) use of oral hypoglycemic drugs; Z79.82 Long term (current) use of aspirin; Z79.899 Other long term (current) drug therapy
CPT/HCPCS: 36415; 36556; 70450; 71045; 80048; 80053; 82306; 82553; 83605; 83735; 83880; 84484; 85025; 85610; 87040; 93005; 93306; 94640; 96361; 96365; 96368; 96375; J0696; J1644; J2543; J2930; J3010; J3370; J3490; J7070; J7620; S0028